=== PATIENT | female | born 1940 | race Caucasian/White ===

== ENCOUNTER 2023-12-21 13:46 | Outpatient (AMB) | payer MEDICARE, SELFPAY ==
[2023-12-21 14:09] VITALS: BP 160/96; PULSE 65; RESP 18; TEMP 35.7; O2SAT 96; BMI 35.5
--- NOTE | 2023-12-21 14:09 | ORTHONT_ITS ---
Vital signs 12/21/23 14:09 Height 1.7 m Height Method Stated Weight 102.625 kg Weight Measurement Method Standing Scale BMI 35.5 BP 160/96 H Blood Pressure Source Automatic Cuff Blood Pressure Location Right Upper Arm Position Sitting Respiration 18 Pulse 65 Pulse Source Monitor Temp 96.2 F L Temp Source Temporal Artery Scan Pulse Oximetry (%) 96 Oxygen Delivery Method Room Air Med/Allergies Allergies & Medications Allergies Sulfa (Sulfonamide Antibiotics) Allergy (Intermediate, Verified 12/21/23 14:11) ITCHING meperidine Allergy (Unknown, Verified 12/21/23 14:11) Rash Medication Reconciliation benazepril 10 mg tablet 10 mg PO DAILY 01/20/20 [History Confirmed 12/21/23] ascorbic acid (vitamin C) 500 mg chewable tablet (Vitamin C) 500 mg PO QDAY 05/01/20 [History Confirmed 12/21/23] calcium 333 mg (carbonate)-magnesium 133 mg-zinc 5 mg (sulfate) tablet 1 tab PO QDAY 05/01/20 [History Confirmed 12/21/23] cholecalciferol (vitamin D3) 10 mcg (400 unit) capsule (Vitamin D3) 10 mcg PO QDAY 05/01/20 [History Confirmed 12/21/23] omega 5-ads-ogr-fish oil 900 mg-1,400 mg capsule,delayed release (Fish Oil) 1 cap PO QDAY 05/01/20 [History Confirmed 12/21/23] vitamin B complex 1 cap PO QDAY 05/01/20 [History Confirmed 12/21/23] metronidazole 500 mg tablet 500 mg PO Q8H #21 tabs 12/27/22 [Rx Confirmed 12/21/23] carvedilol 3.125 mg tablet 3.125 mg PO BID 09/24/23 [History Confirmed 12/21/23] turmeric root extract 500 mg capsule 500 mg PO BID 09/24/23 [History Confirmed 12/21/23] ubidecarenone-omega 3-vit E 25 mg-150 (90-60) mg-200 unit capsule (Co X-[id number] E-Fish Oil) 1 cap PO QDAY 09/24/23 [History Confirmed 12/21/23] wheat dextrin 5 gram/7.4 gram oral powder (Benefiber Healthy Shape) g PO 09/24/23 [History Confirmed 12/21/23] Subjective Visit Visit for: follow up visit and other (specify) Immunization / Flu Flu Vaccine in the Last 12 Months: No Flu Vaccine Exclusion Criteria: No Exclusion Criteria History of Present Illness Chief complaint: PRE-OPT Date of injury / onset of symptoms: 12/01/23 Pleasant 83-year-old female with right hip pain and right hip arthritis. The pain is starting to affect her quality of life and happiness. She also has significant spinal stenosis and history of spine surgeries. She does have radicular pain that goes down her leg. She Has not had any hip injections. She also has significant right knee pain. She tried injections in the past. She is also tried anti-inflammatories. The pain is affecting her quality life and happiness. She only had mild relief with the hip injection. she also has had a history of back surgery. Personal History Occupation: RETIRED Hobbies: WALKING Pain Pain level (0-10): 8 Pain duration: ALL DAY Pain location: inside (medial), outside (lateral), anterior and posterior Pain quality: sharp, dull and aching Pain timing: increases with activity and stairs Associated signs & symptoms: numbness, weakness and stiffness Ambulatory data Ambulatory device: cane Treatments Improvement with previous injections: No Improvement with PT: No Improvement with NSAIDS: n/a Review of Systems Review of Systems: All systems negative unless otherwise noted in HPI. Exam Exam Patient is in no acute distress and is cooperative with the examination today. Breathing is nonlabored. In no respiratory distress. Patient has no paraspinal tenderness. Spinal deformity [cannot] be appreciated. The gait of the patient is [nonantalgic] Bilateral extremities were evaluated and demonstrates sensation intact to light touch. Palpable pedal pulses are present. No significant edema is present. Bilateral knees were examined and the patient has full strength and range of motion.. The left hip was examined. Patient was able to flex to 90 degrees, adduct to 30 degrees, abduct to 40 degrees, internally rotate to 20 degrees, and externally rotate to 20 degrees. Patient has a negative logroll. Stinchfield is negative. The patient is nontender diffusely to touch. The right hip was examined. Patient was able to flex to [90] degrees, adduct to [30] degrees, abduct to [40] degrees, internally rotate to 0 degrees, and externally rotate to [20] degrees. Patient has a positive logroll Right knee demonstrates painful range of motion. Range of motion is 0 to 110 degrees. Knee feels stable to varus stress as well as AP translation. There is valgus alignment X-rays demonstrate significant right hip arthritis. There is complete obliteration of the joint space X-rays of the right knee demonstrate complete obliteration of the lateral joint space. There is impressive valgus alignment. She also has a left total knee replacement good alignment position. There is a similar knee Assessment and Plan Problem List (1) Unilateral primary osteoarthritis, right hip: Status: Acute (2) Arthritis of right knee: Status: Acute Plan: Patient is a pleasant 83-year-old female with right hip and right knee arthritis. She has a history of 2 back surgeries in the past. Regarding her hip, I am not sure how much of the pain is attributed to her back. I thus recommended a hip injection for both diagnostic and therapeutic purposes. She also has significant right knee pain that is affecting her quality life and happiness. She tried injections in the past and there is quite impressive valgus alignment. She had a total knee replacement on the other side previously and wants a total knee replacement on the right side. I think this is reasonable given her failure of conservative management. In addition, the pain is affecting her quality of life for the right knee and I thus think that a total knee replacement on the right is a reasonable option. The nature and purpose of the total knee replacement, alternative method(s) of treatment, the material risks involved, and the possibility of complications were fully explained to the patient. The patient does NOT have any of the following contraindications to TKA: - Active infection of the knee joint, OR - Active systemic bacteremia, OR - Active skin infection or open wound at surgical site, OR - Neuropathic arthritis, OR - Severe, rapidly progressive neurological disease, OR - Severe medical condition that makes risks of surgery outweigh the potential benefit The patient was told the most common risks and complications associated with a total knee replacement include, but are not limited to: blood clots in the leg, fatal pulmonary embolism, dislocation of the prosthesis, intraoperative and postoperative fractures of the femur or tibia, infection, failure of the prosthesis or grafting materials, complications from anesthesia, reactions to bl ood transfusions, postoperative leg length inequality, instability of the knee replacement, nerve damage or injury, vascular injury, delayed wound healing, infection, other injury or even . In addition, there are risks associated with anesthesia given during this operation. Also, the patient was told that after undergoing a total knee replacement there may still be persistent pain or disability. The patient was informed that the success of this operation in part depends upon the mechanical devices which are going to be implanted and that these devices can fail or malfunction, and may need to be repaired or replaced and there are no guarantees as to the longevity of this device or its parts and that it or its parts could fail prematurely. The patient was also notified that during the course of surgery, there may be a need to use bone graft from donors, and that any bone graft used will be carefully screened for communicable diseases, including AIDS, hepatitis, Stewart-Creutzfeldt, or other diseases, but despite the screening procedures, there is a small chance that they could contract one of these diseases. Finally, the patient was asked to follow completely and fully with all advice and recommended treatments, and that recovery and ultimate outcome are affected by their compliance with recommended treatment. We discussed the risks, benefits and treatment alternatives, and the patient is interested in proceeding with surgery. We will try to set this up as expeditiously as possible. Advanced Care Planning Discussion Advance care planning discussed with:: patient Office Procedures GNS Level of Care Nursing/Assessment Patient Status: Established Patient Nursing Assessment/Reassesment: Medication Reconciliation, Update PMH in EMR and Vital Signs Coordination of Care: Complex Care and Chronic Disease 1-5, Education Complex Pt/Fam, Consent,records obtained, informed consent, 1 Ins Authorization, Results/Orders obtained and Staff clarify orders Established Patient Charge Established Patient Point Assignment: 110 Established Patient Point Charge: EP Level 3 (80-115) Past Medical History Past Medical History Have you ever been diagnosed with any of the following: Neurological Problems Seizures: No Cardiology Problems Congestive Heart Failure: No Hypertension: Yes Respiratory Problems Chronic Obstructive Pulmonary Disease (COPD): No Asthma: No Smoking: No Smoking Cessation Counseling: No Smoking Exposure: No Tobacco Use: No Clubbing: No Stomache/Intestinal Problems Diverticulosis: Yes Genital/Urinary Problems Renal Disease: No Musculoskeletal Problems Arthritis: Yes Endocrine Problems Diabetes Mellitus Type 1: No Diabetes Mellitus Type 2: No Blood Problems Sickle Cell Disease: No Other Problems Blood Transfusions: No Anesthesia Reactions: No
== END 2023-12-21 14:51 | disposition home or self-care (01) ==
LOC: HODSRG 13:46
PROVIDERS: PCP Internal Medicine; Referring Provider Internal Medicine; Supervising Provider Orthopaedic Surgery Adult Reconstructive Orthopaedic Surgery; Visit Provider Orthopaedic Surgery Adult Reconstructive Orthopaedic Surgery
DX: M16.11 Unilateral primary osteoarthritis, right hip (principal); M17.11 Unilateral primary osteoarthritis, right knee; I10 Essential (primary) hypertension
CPT/HCPCS: 99213; G0463

== ENCOUNTER 2024-01-04 07:52 | Outpatient (AMB) | payer MEDICARE, SELFPAY ==
[2024-01-04 08:05] VITALS: BP 133/82; PULSE 86; RESP 19; TEMP 36.6; O2SAT 96; BMI 36.6
--- NOTE | 2024-01-04 08:05 | PD.ORTHCLVIS ---
Vital signs 01/04/24 08:05 Height 1.7 m Height Method Stated Weight 105.687 kg Weight Measurement Method Standing Scale BMI 36.6 BP 133/82 H Blood Pressure Source Automatic Cuff Blood Pressure Location Right Upper Arm Position Sitting Respiration 19 Pulse 86 Pulse Source Monitor Temp 97.8 F Temp Source Temporal Artery Scan Pulse Oximetry (%) 96 Oxygen Delivery Method Room Air Med/Allergies Allergies & Medications Allergies [id number] Reductase Inhibitor Allergy (Intermediate, Verified 01/04/24 08:06) Muscle Pain Sulfa (Sulfonamide Antibiotics) Allergy (Intermediate, Verified 01/04/24 08:06) ITCHING meperidine Allergy (Unknown, Verified 01/04/24 08:06) Rash Medication Reconciliation cholecalciferol (vitamin D3) 10 mcg (400 unit) capsule (Vitamin D3) 10 mcg PO QDAY 05/01/20 [History Confirmed 01/04/24] carvedilol 3.125 mg tablet 3.125 mg PO BID 09/24/23 [History Confirmed 01/04/24] magnesium oxide 400 mg PO QDAY 12/27/23 [History Confirmed 01/04/24] vitamin D3 1,250 mcg (50,000 unit)-vitamin K2 200 mcg capsule 1 cap PO BID 12/27/23 [History Confirmed 01/04/24] zinc 50 mg tablet 50 mg PO QDAY 12/27/23 [History Confirmed 01/04/24] acetaminophen 500 mg tablet (Acetaminophen Extra Strength) 1,000 mg (2 x 500 mg) PO Q6H PRN pain #90 tabs 12/29/23 [Rx Confirmed 01/04/24] aspirin 81 mg tablet,delayed release 81 mg PO BID #60 tabs 12/29/23 [Rx Confirmed 01/04/24] doxycycline hyclate 100 mg tablet 100 mg PO BID #14 tabs 12/29/23 [Rx Confirmed 01/04/24] gabapentin 300 mg capsule 300 mg PO .qhs #30 caps 12/29/23 [Rx Confirmed 01/04/24] sennosides 8.6 mg-docusate sodium 50 mg tablet (Senna-S) 1 tab-cap PO QDAY #30 tabs 12/29/23 [Rx Confirmed 01/04/24] cyclobenzaprine 5 mg tablet 5 mg PO TID PRN muscle spasm #30 tabs 12/31/23 [Rx Confirmed 01/04/24] oxycodone 5 mg tablet 5 mg PO Q6H PRN pain #28 tabs 01/04/24 [Rx] Subjective Visit Visit for: follow up visit and knee Immunization / Flu Flu Vaccine in the Last 12 Months: No Flu Vaccine Exclusion Criteria: No Exclusion Criteria History of Present Illness Chief complaint: F/U ON KNEE SX Date of 1st surgery (if applicable): 12/29/2023 Patient is 1 week status post right total knee replacement. The patient had a Prevena on it and it was removed. The patient is doing reasonably well for being 5 days postop Pain Pain level (0-10): 10 Pain duration: ALL DAY Pain location: inside (medial), outside (lateral) and anterior Pain quality: sharp, dull and aching Pain timing: night, increases with activity and stairs Ambulatory data Ambulatory device: walker Treatments Improvement with previous injections: No Improvement with PT: No Improvement with NSAIDS: no Review of Systems Review of Systems: All systems negative unless otherwise noted in HPI. Exam Exam Patient is in no acute distress and is cooperative with the examination today. Patient has a normal mood and affect. Breathing is nonlabored. In no respiratory distress. Bilateral extremities were evaluated and demonstrates sensation intact to light touch. Palpable pedal pulses are present. No significant edema is present. Right knee incision is clean dry intact. Assessment and Plan Problem List (1) Unilateral primary osteoarthritis, right hip: Status: Acute (2) Arthritis of right knee: Status: Acute Plan: Patient is a pleasant 83-year-old female with right hip and right knee arthritis. The patient had a lot of pain status post total knee replacement. It is starting to get controlled now. She was quite upset with me because I only gave her 5 mg of oxycodone and she wanted more. I discussed with her that the pain is definitely present 2 to 5 days after surgery. It is starting to become under control now. We will see her back in approximately 10 days or 2 weeks for a wound check Advanced Care Planning Discussion Advance care planning discussed with:: patient Office Procedures GNS Level of Care Nursing/Assessment Patient Status: Established Patient Nursing Assessment/Reassesment: Medication Reconciliation, Update PMH in EMR and Vital Signs Coordination of Care: Complex Care and Chronic Disease 1-5, Education Complex Pt/Fam, Consent,records obtained, informed consent, Results/Orders obtained and Staff clarify orders Miscellaneous Interventions: Dressing placement or removal Established Patient Charge Established Patient Point Assignment: 115 Established Patient Point Charge: Level 3 (80-115) Past Medical History Past Medical History Have you ever been diagnosed with any of the following: Neurological Problems Seizures: No Cardiology Problems Cardiac Arrhythmia: No Atrial Fibrillation: No Angina: No Coronary Artery Disease: Yes Atherosclerotic Heart Disease: No Hypercholesterolemia: Yes Aneurysm: No Congestive Heart Failure: No Congenital Heart Disease: No Cardiomyopathy: No Hypertension: Yes Varicose Veins: Yes Respiratory Problems Chronic Obstructive Pulmonary Disease (COPD): No Asthma: No Smoking: No Smoking Cessation Counseling: No Smoking Exposure: No Tobacco Use: No Clubbing: No Stomache/Intestinal Problems Hepatitis: No Diverticulosis: Yes Genital/Urinary Problems Renal Disease: Yes Reproductive Problems Pelvic Inflammatory Disease: No Previous Pregnancies: Yes Musculoskeletal Problems Arthritis: Yes Fractures: Yes (wrist as a child) Head,Eye,Nose,Throat Problems Cataracts: Yes Endocrine Problems Diabetes Mellitus Type 1: No Diabetes Mellitus Type 2: No Blood Problems Sickle Cell Disease: No Clotting Problems: No Other Problems Hospitalization: Yes (surgery) Down Syndrome: No Developmental Delay: No Shingles: No Blood Transfusions: Yes Blood Transfusion Reaction: No Anesthesia Reactions: No Organ Transplant: No Chemotherapy: No Radiation Therapy: No MRSA: No VRSA: No Vancomycin-Resistant Enterococci: No Chicken Pox: Yes Measles: Yes Mumps: Yes Clostridium Difficile: No Cancer: Yes Surgical History Coronary Artery Bypass Graft: Yes (Apr 2023) Hysterectomy: Yes Thyroidectomy: No
== END 2024-01-04 08:28 | disposition home or self-care (01) ==
LOC: HODSRG 07:52
PROVIDERS: PCP Family Medicine; Referring Provider Family Medicine; Supervising Provider Orthopaedic Surgery Adult Reconstructive Orthopaedic Surgery; Visit Provider Orthopaedic Surgery Adult Reconstructive Orthopaedic Surgery
DX: Z47.1 Aftercare following joint replacement surgery (principal); Z96.651 Presence of right artificial knee joint; M16.11 Unilateral primary osteoarthritis, right hip; M17.11 Unilateral primary osteoarthritis, right knee; I10 Essential (primary) hypertension; E78.00 Pure hypercholesterolemia, unspecified; I25.10 Atherosclerotic heart disease of native coronary artery without angina pectoris
CPT/HCPCS: 99213; G0463

== ENCOUNTER 2024-01-11 09:38 | Outpatient (AMB) | payer MEDICARE, SELFPAY ==
--- NOTE | 2024-01-11 09:37 | PD.ORTHTELE ---
Med/Allergies Allergies & Medications Allergies [id number]-VsB Reductase Inhibitor Allergy (Intermediate, Verified 01/11/24 09:37) Muscle Pain Sulfa (Sulfonamide Antibiotics) Allergy (Intermediate, Verified 01/11/24 09:37) ITCHING meperidine Allergy (Unknown, Verified 01/11/24 09:37) Rash Medication Reconciliation cholecalciferol (vitamin D3) 10 mcg (400 unit) capsule (Vitamin D3) 10 mcg PO QDAY 05/01/20 [History Confirmed 01/11/24] carvedilol 3.125 mg tablet 3.125 mg PO BID 09/24/23 [History Confirmed 01/11/24] magnesium oxide 400 mg PO QDAY 12/27/23 [History Confirmed 01/11/24] vitamin D3 1,250 mcg (50,000 unit)-vitamin K2 200 mcg capsule 1 cap PO BID 12/27/23 [History Confirmed 01/11/24] zinc 50 mg tablet 50 mg PO QDAY 12/27/23 [History Confirmed 01/11/24] acetaminophen 500 mg tablet (Acetaminophen Extra Strength) 1,000 mg (2 x 500 mg) PO Q6H PRN pain #90 tabs 12/29/23 [Rx Confirmed 01/11/24] aspirin 81 mg tablet,delayed release 81 mg PO BID #60 tabs 12/29/23 [Rx Confirmed 01/11/24] doxycycline hyclate 100 mg tablet 100 mg PO BID #14 tabs 12/29/23 [Rx Confirmed 01/11/24] gabapentin 300 mg capsule 300 mg PO .qhs #30 caps 12/29/23 [Rx Confirmed 01/11/24] sennosides 8.6 mg-docusate sodium 50 mg tablet (Senna-S) 1 tab-cap PO QDAY #30 tabs 12/29/23 [Rx Confirmed 01/11/24] cyclobenzaprine 5 mg tablet 5 mg PO TID PRN muscle spasm #30 tabs 12/31/23 [Rx Confirmed 01/11/24] oxycodone 10 mg tablet 10 mg PO Q6H PRN pain #28 tabs 01/11/24 [Rx Confirmed 01/11/24] Subjective Visit Visit for: follow up visit and knee Immunization / Flu Flu Vaccine in the Last 12 Months: No Flu Vaccine Exclusion Criteria: Refused by Patient History of Present Illness Chief complaint: KNEE PAINA/REQ REFILLS Pain Pain level (0-10): 9 Pain duration: ALL DAY Pain location: inside (medial) Pain quality: aching Pain timing: night Associated signs & symptoms: none Ambulatory data Ambulatory device: none Treatments Improvement with previous injections: No Improvement with PT: No Improvement with NSAIDS: no Review of Systems Review of Systems: All systems negative unless otherwise noted in HPI. Assessment and Plan Advanced Care Planning Discussion Advance care planning discussed with:: patient Office Procedures GNS Level of Care Nursing/Assessment Patient Status: Established Patient Nursing Assessment/Reassesment: Medication Reconciliation, Update PMH in EMR and Vital Signs Coordination of Care: Complex Care and Chronic Disease 1-5, Education Complex Pt/Fam, Consent,records obtained, informed consent, 1 Ins Authorization and Staff clarify orders Established Patient Charge Established Patient Point Assignment: 105 Telehealth Telemed Phone/Video with patient at home & ,PA,[employer]TLER [employer]: Yes
--- NOTE | 2024-03-23 13:13 | ORTHONT_ITS ---
Vital Signs 01/21/24 09:38 Height 1.7 m Height Method Stated Weight 102.739 kg Weight Measurement Method Standing Scale BMI 35.5 Temp 96.1 F L Temp Source Temporal Artery Scan Pulse 76 Pulse Source Monitor Respiration 18 BP 124/72 Blood Pressure Source Automatic Cuff Blood Pressure Location Right Upper Arm Position Sitting Pulse Oximetry (%) 96 Oxygen Delivery Method Room Air Perico Nguyen MD Office Procedure Documentation entered by Valerie Bird 01/21/24 09:30: GNS Level of Care Nursing/Assessment Patient Status: Established Patient Nursing Assessment/Reassesment: Medication Reconciliation, Update PMH in EMR and Vital Signs Coordination of Care: Complex Care and Chronic Disease 1-5, Education Complex Pt/Fam, Consent,records obtained, informed consent, Results/Orders obtained and Staff clarify orders Established Patient Charge Established Patient Point Assignment: 95 Established Patient Point Charge: EP Level 3 (80-115) Med/Allergies Allergies & Medications Allergies Odvcwxx-NEE-VfZ Reductase Inhibitor Allergy (Intermediate, Verified 01/11/24 09:37) Muscle Pain Sulfa (Sulfonamide Antibiotics) Allergy (Intermediate, Verified 01/11/24 09:37) ITCHING meperidine Allergy (Unknown, Verified 01/11/24 09:37) Rash Subjective Immunization / Flu Flu Vaccine in the Last 12 Months: No Flu Vaccine Exclusion Criteria: Already Received History of Present Illness Chief complaint: Pain management This is a phone encounter. Hope called her office ask for refill. She states that she wants 10 mg. She states that during her last surgery she had OxyContin. I discussed with her that this is very atypical. I discussed with her that what she is seeking is a lot of narcotic medications and more than this typically was prescribed after her knee replacement surgery. She reports that the 5 mg of oxycodone is not enough and wants 10 mg. After a very extensive conversation lasting more than 15 minutes. I discussed that we can try oxycodone 10 mg but this would be the last prescription. I would only give her 1 weeks worth which is 28 pills. I discussed that this is a very high dose especially at her age and she should cut the pills in half if possible. I discussed with her that I will also talk to her primary care provider regarding her pain control. The patient states that she did warn us multiple times the pain is always an issue after surgery. We will do her best to get past this point in time. She has called her office staff more than 4-5 times today already. Review of Systems Review of Systems: All systems negative unless otherwise noted in HPI. Assessment and Plan Advanced Care Planning Discussion Advance care planning discussed with:: patient Past Medical History Past Medical History Have you ever been diagnosed with any of the following: Neurological Problems Seizures: No Cardiology Problems Cardiac Arrhythmia: No Atrial Fibrillation: No Angina: No Coronary Artery Disease: Yes Atherosclerotic Heart Disease: No Hypercholesterolemia: Yes Aneurysm: No Congestive Heart Failure: No Congenital Heart Disease: No Cardiomyopathy: No Hypertension: Yes Varicose Veins: Yes Respiratory Problems Chronic Obstructive Pulmonary Disease (COPD): No Asthma: No Smoking: No Smoking Cessation Counseling: No Smoking Exposure: No Tobacco Use: No Clubbing: No Stomache/Intestinal Problems Hepatitis: No Diverticulosis: Yes Genital/Urinary Problems Renal Disease: Yes Reproductive Problems Pelvic Inflammatory Disease: No Previous Pregnancies: Yes Musculoskeletal Problems Arthritis: Yes Fractures: Yes (wrist as a child) Head,Eye,Nose,Throat Problems Cataracts: Yes Endocrine Problems Diabetes Mellitus Type 1: No Diabetes Mellitus Type 2: No Blood Problems Sickle Cell Disease: No Clotting Problems: No Other Problems Hospitalization: Yes (surgery) Down Syndrome: No Developmental Delay: No Shingles: No Blood Transfusions: Yes Blood Transfusion Reaction: No Anesthesia Reactions: No Organ Transplant: No Chemotherapy: No Radiation Therapy: No MRSA: No VRSA: No Vancomycin-Resistant Enterococci: No Chicken Pox: Yes Measles: Yes Mumps: Yes Clostridium Difficile: No Cancer: Yes Surgical History Coronary Artery Bypass Graft: Yes (Apr 2023) Hysterectomy: Yes Thyroidectomy: No MTDD
== END 2024-01-11 09:59 | disposition home or self-care (01) ==
PROVIDERS: PCP Family Medicine; Referring Provider Family Medicine; Supervising Provider Orthopaedic Surgery Adult Reconstructive Orthopaedic Surgery; Visit Provider Orthopaedic Surgery Adult Reconstructive Orthopaedic Surgery
DX: R52 Pain, unspecified (principal); Z96.659 Presence of unspecified artificial knee joint; I10 Essential (primary) hypertension; E78.00 Pure hypercholesterolemia, unspecified
CPT/HCPCS: 99212; G0463

== ENCOUNTER 2024-01-21 09:07 | Outpatient (AMB) | payer MEDICARE, SELFPAY ==
--- NOTE | 2024-01-11 09:38 | PD.ORTHCLVIS ---
Med/Allergies Allergies & Medications Allergies Oyfeucp-[id number]-[id number] Reductase Inhibitor Allergy (Intermediate, Verified 01/11/24 09:37) Muscle Pain Sulfa (Sulfonamide Antibiotics) Allergy (Intermediate, Verified 01/11/24 09:37) ITCHING meperidine Allergy (Unknown, Verified 01/11/24 09:37) Rash Subjective Immunization / Flu Flu Vaccine in the Last 12 Months: No Flu Vaccine Exclusion Criteria: Already Received History of Present Illness Chief complaint: Pain management This is a phone encounter. Hope called her office ask for refill. She states that she wants 10 mg. She states that during her last surgery she had OxyContin. I discussed with her that this is very atypical. I discussed with her that what she is seeking is a lot of narcotic medications and more than this typically was prescribed after her knee replacement surgery. She reports that the 5 mg of oxycodone is not enough and wants 10 mg. After a very extensive conversation lasting more than 15 minutes. I discussed that we can try oxycodone 10 mg but this would be the last prescription. I would only give her 1 weeks worth which is 28 pills. I discussed that this is a very high dose especially at her age and she should cut the pills in half if possible. I discussed with her that I will also talk to her primary care provider regarding her pain control. The patient states that she did warn us multiple times the pain is always an issue after surgery. We will do her best to get past this point in time. She has called her office staff more than 4-5 times today already. Review of Systems Review of Systems: All systems negative unless otherwise noted in HPI. Assessment and Plan Advanced Care Planning Discussion Advance care planning discussed with:: patient Past Medical History Past Medical History Have you ever been diagnosed with any of the following: Neurological Problems Seizures: No Cardiology Problems Cardiac Arrhythmia: No Atrial Fibrillation: No Angina: No Coronary Artery Disease: Yes Atherosclerotic Heart Disease: No Hypercholesterolemia: Yes Aneurysm: No Congestive Heart Failure: No Congenital Heart Disease: No Cardiomyopathy: No Hypertension: Yes Varicose Veins: Yes Respiratory Problems Chronic Obstructive Pulmonary Disease (COPD): No Asthma: No Smoking: No Smoking Cessation Counseling: No Smoking Exposure: No Tobacco Use: No Clubbing: No Stomache/Intestinal Problems Hepatitis: No Diverticulosis: Yes Genital/Urinary Problems Renal Disease: Yes Reproductive Problems Pelvic Inflammatory Disease: No Previous Pregnancies: Yes Musculoskeletal Problems Arthritis: Yes Fractures: Yes (wrist as a child) Head,Eye,Nose,Throat Problems Cataracts: Yes Endocrine Problems Diabetes Mellitus Type 1: No Diabetes Mellitus Type 2: No Blood Problems Sickle Cell Disease: No Clotting Problems: No Other Problems Hospitalization: Yes (surgery) Down Syndrome: No Developmental Delay: No Shingles: No Blood Transfusions: Yes Blood Transfusion Reaction: No Anesthesia Reactions: No Organ Transplant: No Chemotherapy: No Radiation Therapy: No MRSA: No VRSA: No Vancomycin-Resistant Enterococci: No Chicken Pox: Yes Measles: Yes Mumps: Yes Clostridium Difficile: No Cancer: Yes Surgical History Coronary Artery Bypass Graft: Yes (Apr 2023) Hysterectomy: Yes Thyroidectomy: No
[2024-01-21 09:38] VITALS: BP 124/72; PULSE 76; RESP 18; TEMP 35.6; O2SAT 96; BMI 35.5
--- NOTE | 2024-01-21 09:39 | PD.ORTHCLVIS ---
Vital signs 01/21/24 09:38 01/21/24 09:40 Height 1.7 m Height Method Stated Weight 102.739 kg Weight Measurement Method Standing Scale BMI 35.5 BP 124/72 124/72 Blood Pressure Source Automatic Cuff Blood Pressure Location Right Upper Arm Position Sitting Respiration 18 18 Pulse 76 76 Pulse Source Monitor Temp 96.1 F L 96.1 F L Temp Source Temporal Artery Scan Pulse Oximetry (%) 96 96 Oxygen Delivery Method Room Air Med/Allergies Allergies & Medications Allergies Vrvkyhv-YKB-YoI Reductase Inhibitor Allergy (Intermediate, Verified 01/21/24 09:39) Muscle Pain Sulfa (Sulfonamide Antibiotics) Allergy (Intermediate, Verified 01/21/24 09:39) ITCHING meperidine Allergy (Unknown, Verified 01/21/24 09:39) Rash Medication Reconciliation cholecalciferol (vitamin D3) 10 mcg (400 unit) capsule (Vitamin D3) 10 mcg PO QDAY 05/01/20 [History Confirmed 01/21/24] carvedilol 3.125 mg tablet 3.125 mg PO BID 09/24/23 [History Confirmed 01/21/24] magnesium oxide 400 mg PO QDAY 12/27/23 [History Confirmed 01/21/24] vitamin D3 1,250 mcg (50,000 unit)-vitamin K2 200 mcg capsule 1 cap PO BID 12/27/23 [History Confirmed 01/21/24] zinc 50 mg tablet 50 mg PO QDAY 12/27/23 [History Confirmed 01/21/24] acetaminophen 500 mg tablet (Acetaminophen Extra Strength) 1,000 mg (2 x 500 mg) PO Q6H PRN pain #90 tabs 12/29/23 [Rx Confirmed 01/21/24] aspirin 81 mg tablet,delayed release 81 mg PO BID #60 tabs 12/29/23 [Rx Confirmed 01/21/24] doxycycline hyclate 100 mg tablet 100 mg PO BID #14 tabs 12/29/23 [Rx Confirmed 01/21/24] gabapentin 300 mg capsule 300 mg PO .qhs #30 caps 12/29/23 [Rx Confirmed 01/21/24] sennosides 8.6 mg-docusate sodium 50 mg tablet (Senna-S) 1 tab-cap PO QDAY #30 tabs 12/29/23 [Rx Confirmed 01/21/24] cyclobenzaprine 5 mg tablet 5 mg PO TID PRN muscle spasm #30 tabs 12/31/23 [Rx Confirmed 01/21/24] oxycodone 10 mg tablet 10 mg PO Q6H PRN pain #28 tabs 01/11/24 [Rx Confirmed 01/21/24] pregabalin 75 mg capsule 75 mg PO BID #60 caps 01/21/24 [Rx Confirmed 01/21/24] Subjective Visit Visit for: follow up visit and knee Immunization / Flu Flu Vaccine in the Last 12 Months: No Flu Vaccine Exclusion Criteria: Already Received History of Present Illness Chief complaint: 3 weeks postop Patient is 3 weeks postop status post right total knee replacement. The pain is now more controlled than before. She should work with outpatient physical therapy Pain Pain level (0-10): 5 Pain duration: ON AND OFF Pain location: inside (medial) Pain quality: aching Pain timing: night Ambulatory data Ambulatory device: walker Review of Systems Review of Systems: All systems negative unless otherwise noted in HPI. Exam Exam Patient is in no acute distress and is cooperative with the examination today. Patient has a normal mood and affect. Breathing is nonlabored. In no respiratory distress. Bilateral extremities were evaluated and demonstrates sensation intact to light touch. Palpable pedal pulses are present. No significant edema is present. Right knee incision is clean dry intact. Assessment and Plan Problem List (1) Arthritis of right knee: Status: Acute Plan: Vani is a pleasant 83-year-old female with right knee pain and right knee arthritis. The patient is doing better and has been more well-controlled pain. Will see her in approximately 3 weeks with new x-rays Advanced Care Planning Discussion Advance care planning discussed with:: patient Office Procedures GNS Level of Care Nursing/Assessment Patient Status: Established Patient Nursing Assessment/Reassesment: Medication Reconciliation, Update PMH in EMR and Vital Signs Coordination of Care: Complex Care and Chronic Disease 1-5, Education Complex Pt/Fam, Consent,records obtained, informed consent, Results/Orders obtained and Staff clarify orders Established Patient Charge Established Patient Point Assignment: 95 Established Patient Point Charge: EP Level 3 (80-115) Past Medical History Past Medical History Have you ever been diagnosed with any of the following: Neurological Problems Seizures: No Cardiology Problems Cardiac Arrhythmia: No Atrial Fibrillation: No Angina: No Coronary Artery Disease: Yes Atherosclerotic Heart Disease: No Hypercholesterolemia: Yes Aneurysm: No Congestive Heart Failure: No Congenital Heart Disease: No Cardiomyopathy: No Hypertension: Yes Varicose Veins: Yes Respiratory Problems Chronic Obstructive Pulmonary Disease (COPD): No Asthma: No Smoking: No Smoking Cessation Counseling: No Smoking Exposure: No Tobacco Use: No Clubbing: No Stomache/Intestinal Problems Hepatitis: No Diverticulosis: Yes Genital/Urinary Problems Renal Disease: Yes Reproductive Problems Pelvic Inflammatory Disease: No Previous Pregnancies: Yes Musculoskeletal Problems Arthritis: Yes Fractures: Yes (wrist as a child) Head,Eye,Nose,Throat Problems Cataracts: Yes Endocrine Problems Diabetes Mellitus Type 1: No Diabetes Mellitus Type 2: No Blood Problems Sickle Cell Disease: No Clotting Problems: No Other Problems Hospitalization: Yes (surgery) Down Syndrome: No Developmental Delay: No Shingles: No Blood Transfusions: Yes Blood Transfusion Reaction: No Anesthesia Reactions: No Organ Transplant: No Chemotherapy: No Radiation Therapy: No MRSA: No VRSA: No Vancomycin-Resistant Enterococci: No Chicken Pox: Yes Measles: Yes Mumps: Yes Clostridium Difficile: No Cancer: Yes Surgical History Coronary Artery Bypass Graft: Yes (Apr 2023) Hysterectomy: Yes Thyroidectomy: No
[2024-01-21 09:40] VITALS: BP 124/72; PULSE 76; RESP 18; TEMP 35.6; O2SAT 96
== END 2024-01-21 09:38 | disposition home or self-care (01) ==
PROVIDERS: PCP Family Medicine; Referring Provider Family Medicine; Supervising Provider Orthopaedic Surgery Adult Reconstructive Orthopaedic Surgery; Visit Provider Orthopaedic Surgery Adult Reconstructive Orthopaedic Surgery
DX: M17.11 Unilateral primary osteoarthritis, right knee (principal); M25.561 Pain in right knee; Z96.651 Presence of right artificial knee joint; I10 Essential (primary) hypertension; E78.00 Pure hypercholesterolemia, unspecified; I25.10 Atherosclerotic heart disease of native coronary artery without angina pectoris; Z95.1 Presence of aortocoronary bypass graft
CPT/HCPCS: 99213; G0463

== ENCOUNTER 2024-01-25 11:06 | Outpatient (AMB) | payer MEDICARE, SELFPAY ==
--- NOTE | 2024-01-25 10:34 | PD.ORTHTELE ---
Med/Allergies Allergies & Medications Allergies Xwvlizv-VNK-UfO Reductase Inhibitor Allergy (Intermediate, Verified 01/25/24 10:34) Muscle Pain Sulfa (Sulfonamide Antibiotics) Allergy (Intermediate, Verified 01/25/24 10:34) ITCHING meperidine Allergy (Unknown, Verified 01/25/24 10:34) Rash Medication Reconciliation cholecalciferol (vitamin D3) 10 mcg (400 unit) capsule (Vitamin D3) 10 mcg PO QDAY 05/01/20 [History Confirmed 01/25/24] carvedilol 3.125 mg tablet 3.125 mg PO BID 09/24/23 [History Confirmed 01/25/24] magnesium oxide 400 mg PO QDAY 12/27/23 [History Confirmed 01/25/24] vitamin D3 1,250 mcg (50,000 unit)-vitamin K2 200 mcg capsule 1 cap PO BID 12/27/23 [History Confirmed 01/25/24] zinc 50 mg tablet 50 mg PO QDAY 12/27/23 [History Confirmed 01/25/24] acetaminophen 500 mg tablet (Acetaminophen Extra Strength) 1,000 mg (2 x 500 mg) PO Q6H PRN pain #90 tabs 12/29/23 [Rx Confirmed 01/25/24] aspirin 81 mg tablet,delayed release 81 mg PO BID #60 tabs 12/29/23 [Rx Confirmed 01/25/24] doxycycline hyclate 100 mg tablet 100 mg PO BID #14 tabs 12/29/23 [Rx Confirmed 01/25/24] gabapentin 300 mg capsule 300 mg PO .qhs #30 caps 12/29/23 [Rx Confirmed 01/25/24] sennosides 8.6 mg-docusate sodium 50 mg tablet (Senna-S) 1 tab-cap PO QDAY #30 tabs 12/29/23 [Rx Confirmed 01/25/24] cyclobenzaprine 5 mg tablet 5 mg PO TID PRN muscle spasm #30 tabs 12/31/23 [Rx Confirmed 01/25/24] oxycodone 10 mg tablet 10 mg PO Q6H PRN pain #28 tabs 01/11/24 [Rx Confirmed 01/25/24] pregabalin 75 mg capsule 75 mg PO BID #60 caps 01/21/24 [Rx Confirmed 01/25/24] Subjective Visit Visit for: follow up visit and other (specify) (RX CONCERNS) Immunization / Flu Flu Vaccine in the Last 12 Months: No Flu Vaccine Exclusion Criteria: No Exclusion Criteria History of Present Illness Chief complaint: RX CONCERNS We discussed her pain management in great detail. She has done well with the Lyrica. She had some concerns about the Lyrica and we discussed this in great detail today Pain Pain level (0-10): 3 Pain duration: ON AND OFF Pain location: inside (medial) Pain quality: aching Ambulatory data Ambulatory device: walker Treatments Improvement with previous injections: No Improvement with PT: No Improvement with NSAIDS: no Review of Systems Review of Systems: All systems negative unless otherwise noted in HPI. Assessment and Plan Problem List (1) Arthritis of right knee: Status: Acute Plan: Vani is a pleasant 83-year-old female with right knee pain and right knee arthritis. The patient is doing better and has been more well-controlled pain. We will see the patient back in approximately 6 weeks for routine follow-up. She is doing well and better Advanced Care Planning Discussion Advance care planning discussed with:: patient Office Procedures GNS Level of Care Nursing/Assessment Patient Status: Established Patient Nursing Assessment/Reassesment: Medication Reconciliation, Update PMH in EMR and Vital Signs Coordination of Care: Complex Care and Chronic Disease 1-5, Education Complex Pt/Fam, Consent,records obtained, informed consent and Staff clarify orders Established Patient Charge Established Patient Point Assignment: 90 Telehealth Telemed Phone/Video with patient at home & ,PA,ZIGZAG STITCHER: Yes
== END 2024-01-25 11:09 | disposition home or self-care (01) ==
LOC: HODSRG 11:06
PROVIDERS: PCP Family Medicine; Referring Provider Family Medicine; Supervising Provider Orthopaedic Surgery Adult Reconstructive Orthopaedic Surgery; Visit Provider Orthopaedic Surgery Adult Reconstructive Orthopaedic Surgery
DX: M17.11 Unilateral primary osteoarthritis, right knee (principal); M25.561 Pain in right knee
CPT/HCPCS: 99212; G0463

== ENCOUNTER → 2024-02-14 | Outpatient (CLI) | payer MEDICARE, SELFPAY ==
--- NOTE | 2024-02-14 12:31 | XR_ITS ---
Examination: Right knee 4 views TECHNIQUE: AP oblique lateral axial right knee 4 views Exam date and time: February 14, 2024 1357 hours INDICATIONS: Status post right knee arthroplasty December 29, 2023 FINDINGS: Significant osteopenia Total right knee arthroplasty. Satisfactory alignment No fracture No patellar dislocation IMPRESSION: Total right knee arthroplasty with satisfactory alignment
== END | disposition home or self-care (01) ==
PROVIDERS: PCP Family Medicine; Referring Provider Orthopaedic Surgery Adult Reconstructive Orthopaedic Surgery; Visit Provider Orthopaedic Surgery Adult Reconstructive Orthopaedic Surgery
DX: M17.11 Unilateral primary osteoarthritis, right knee (principal); Z96.651 Presence of right artificial knee joint
CPT/HCPCS: 73564

== ENCOUNTER 2024-02-15 13:21 | Outpatient (AMB) | payer MEDICARE, SELFPAY ==
[2024-02-15 13:49] VITALS: BP 144/72; PULSE 89; RESP 19; TEMP 36.4; O2SAT 98; BMI 36.9
--- NOTE | 2024-02-15 13:49 | RHCORTHONT_ITS ---
Vital signs 02/15/24 13:49 Height 1.7 m Height Method Stated Weight 106.708 kg Weight Measurement Method Standing Scale BMI 36.9 BP 144/72 H Blood Pressure Source Automatic Cuff Blood Pressure Location Left Upper Arm Position Sitting Respiration 19 Pulse 89 Pulse Source Monitor Temp 97.5 F Temp Source Temporal Artery Scan Pulse Oximetry (%) 98 Oxygen Delivery Method Room Air Med/Allergies Allergies & Medications Allergies Cimvpti-ZPY-ByL Reductase Inhibitor Allergy (Intermediate, Verified 02/15/24 13:51) Muscle Pain Sulfa (Sulfonamide Antibiotics) Allergy (Intermediate, Verified 02/15/24 13:51) ITCHING meperidine Allergy (Unknown, Verified 02/15/24 13:51) Rash Medication Reconciliation cholecalciferol (vitamin D3) 10 mcg (400 unit) capsule (Vitamin D3) 10 mcg PO QDAY 05/01/20 [History Confirmed 02/15/24] carvedilol 3.125 mg tablet 3.125 mg PO BID 09/24/23 [History Confirmed 02/15/24] magnesium oxide 400 mg PO QDAY 12/27/23 [History Confirmed 02/15/24] vitamin D3 1,250 mcg (50,000 unit)-vitamin K2 200 mcg capsule 1 cap PO BID 12/27/23 [History Confirmed 02/15/24] zinc 50 mg tablet 50 mg PO QDAY 12/27/23 [History Confirmed 02/15/24] acetaminophen 500 mg tablet (Acetaminophen Extra Strength) 1,000 mg (2 x 500 mg) PO Q6H PRN pain #90 tabs 12/29/23 [Rx Confirmed 02/15/24] aspirin 81 mg tablet,delayed release 81 mg PO BID #60 tabs 12/29/23 [Rx Confirmed 02/15/24] doxycycline hyclate 100 mg tablet 100 mg PO BID #14 tabs 12/29/23 [Rx Confirmed 02/15/24] gabapentin 300 mg capsule 300 mg PO .qhs #30 caps 12/29/23 [Rx Confirmed 02/15/24] sennosides 8.6 mg-docusate sodium 50 mg tablet (Senna-S) 1 tab-cap PO QDAY #30 tabs 12/29/23 [Rx Confirmed 02/15/24] cyclobenzaprine 5 mg tablet 5 mg PO TID PRN muscle spasm #30 tabs 12/31/23 [Rx Confirmed 02/15/24] oxycodone 10 mg tablet 10 mg PO Q6H PRN pain #28 tabs 01/11/24 [Rx Confirmed 02/15/24] pregabalin 75 mg capsule 75 mg PO BID #60 caps 01/21/24 [Rx Confirmed 02/15/24] Exam Exam Patient is in no acute distress and is cooperative with the examination today. Patient has a normal mood and affect. Breathing is nonlabored. In no respiratory distress. Bilateral extremities were evaluated and demonstrates sensation intact to light touch. Palpable pedal pulses are present. No significant edema is present. Right knee incision is clean dry intact. Assessment and Plan Problem List (1) Arthritis of right knee: Status: Acute Plan: Vani is a pleasant 83-year-old female with right knee pain and right knee arthritis. The patient is doing better and has been more well-controlled pain. We will see the patient back in approximately 6 weeks for routine follow-up. She is doing well and better Advanced Care Planning Discussion Advance care planning discussed with:: patient Office Procedures GNS Level of Care Nursing/Assessment Patient Status: Established Patient Nursing Assessment/Reassesment: Medication Reconciliation, Update PMH in EMR and Vital Signs Coordination of Care: Complex Care and Chronic Disease 1-5, Education Complex Pt/Fam, Consent,records obtained, informed consent, Results/Orders obtained and Staff clarify orders Established Patient Charge Established Patient Point Assignment: 95 Established Patient Point Charge: EP Level 3 (80-115) [place] Intake Visit Data Collection New Patient or Established: Established Patient (seen at [facility] within 3 years) Reason for Visit:: F/U on knee tka [employer] Contact [employer]inter Required: No PCP or OBGYN visit in last 3 months: Yes Hx Now: No Do You Feel Safe at Home: Yes Authorities Contacted: N/A Questionairres Past Medical History Past Medical History Have you ever been diagnosed with any of the following: Neurological Problems Seizures: No Cardiology Problems Cardiac Arrhythmia: No Atrial Fibrillation: No Angina: No Coronary Artery Disease: Yes Atherosclerotic Heart Disease: No Hypercholesterolemia: Yes Aneurysm: No Congestive Heart Failure: No Congenital Heart Disease: No Cardiomyopathy: No Hypertension: Yes Varicose Veins: Yes Respiratory Problems Chronic Obstructive Pulmonary Disease (COPD): No Asthma: No Smoking: No Smoking Cessation Counseling: No Smoking Exposure: No Tobacco Use: No Clubbing: No Stomache/Intestinal Problems Hepatitis: No Diverticulosis: Yes Genital/Urinary Problems Renal Disease: Yes Reproductive Problems Pelvic Inflammatory Disease: No Previous Pregnancies: Yes Musculoskeletal Problems Arthritis: Yes Fractures: Yes (wrist as a child) Head,Eye,Nose,Throat Problems Cataracts: Yes Endocrine Problems Diabetes Mellitus Type 1: No Diabetes Mellitus Type 2: No Blood Problems Sickle Cell Disease: No Clotting Problems: No Other Problems Hospitalization: Yes (surgery) Down Syndrome: No Developmental Delay: No Shingles: No Blood Transfusions: Yes Blood Transfusion Reaction: No Anesthesia Reactions: No Organ Transplant: No Chemotherapy: No Radiation Therapy: No MRSA: No VRSA: No Vancomycin-Resistant Enterococci: No Chicken Pox: Yes Measles: Yes Mumps: Yes Clostridium Difficile: No Cancer: Yes Surgical History Coronary Artery Bypass Graft: Yes (Apr 2023) Hysterectomy: Yes Thyroidectomy: No Subjective Visit Visit for: follow up visit and post op #2 Immunization / Flu Flu Vaccine in the Last 12 Months: Yes Flu Vaccine Exclusion Criteria: No Exclusion Criteria History of Present Illness Chief complaint: F/U knee tka Patient is a 83-year-old female status post total knee replacement. She is doing well. Her original course was quite rough as she had uncontrolled pain in the beginning. She reports that this happens quite frequently. She has significant hip arthritis as well. Pain Pain level (0-10): 2 Pain duration: comes and goes Pain quality: sharp Pain timing: night and increases with activity Ambulatory data Ambulatory device: none Treatments Improvement with previous injections: No Improvement with PT: No Improvement with NSAIDS: n/a Review of Systems Review of Systems: All systems negative unless otherwise noted in HPI.
== END 2024-02-15 14:16 | disposition home or self-care (01) ==
LOC: HODSRG 13:21
PROVIDERS: PCP Family Medicine; Referring Provider Family Medicine; Supervising Provider Orthopaedic Surgery Adult Reconstructive Orthopaedic Surgery; Visit Provider Orthopaedic Surgery Adult Reconstructive Orthopaedic Surgery
DX: M17.11 Unilateral primary osteoarthritis, right knee (principal); M25.561 Pain in right knee; I10 Essential (primary) hypertension; I25.10 Atherosclerotic heart disease of native coronary artery without angina pectoris; E78.00 Pure hypercholesterolemia, unspecified; Z95.1 Presence of aortocoronary bypass graft
CPT/HCPCS: 99213; G0463

== ENCOUNTER → 2024-03-13 | Outpatient (CLI) | payer MEDICARE, SELFPAY ==
[2024-03-13 11:34] LABS: Collection Type, Urine Clean Catch; Squamous Epithelial Cell,Urine 0 /hpf (0-5)
[2024-03-13 11:58] LABS: Basophils % (Auto) 1 % (0-2.5); Eosinophils # (Auto) 0.2 Thou/mm3 (0.0-0.5); Eosinophils % (Auto) 3 % (0-10); Hematocrit 38.5 % (36.0-46.0); Hemoglobin 12.6 g/dL (12.0-16.0); Immature Granulocytes % (Auto) 0 % (0-0); Immature Granulocytes Auto 0.01 Thou/mm3 (0.00-0.00); Lymphocytes # (Auto) 1.4 Thou/mm3 (1.0-4.8); Lymphocytes % (Auto) 23 % (10-50); Mean Corpuscular HGB Conc 32.7 g/dl (31.0-37.0); Mean Corpuscular Hemoglobin 30.4 pg (25.0-35.0); Mean Corpuscular Volume 93 fL (80-100); Monocytes # (Auto) 0.4 Thou/mm3 (0.0-0.8); Monocytes % (Auto) 6 % (0-12); Neutrophils # (Auto) 4.3 Thou/mm3 (1.8-7.7); Neutrophils % (Auto) 68 % (37-80); Nucleated Red Blood Cell % 0 /100 WBC (0); Platelet Count 191 Thou/mm3 (140-440); RDW Standard Deviation 44.2 fL (36.4-46.3); Red Blood Count 4.14 Miln/mm3 (4.00-5.20); White Blood Count 6.3 Thou/mm3 (3.6-11.0)
[2024-03-13 12:09] LABS: Bacteria,Urine Rare; Bilirubin,Urine Negative (Negative); Blood,Urine Negative (Negative); Clarity,Urine Clear (Clear/Hazy); Color,Urine Lt-Yellow (Lt Yel-Yel); Glucose, Urine Negative (Negative); Ketones,Urine Negative (Negative); Leukocyte Esterase,Urine Negative (Negative); Nitrite,Urine Negative (Negative); Protein,Urine Trace (Neg - Trace); RBC,Urine 1 /hpf (0-3); Specific Gravity,Urine 1.016 (1.001-1.035); Urobilinogen,Urine Negative mg/dL (0.0-1.0); WBC,Urine 3 /hpf (0-5)
[2024-03-13 12:14] LABS: Albumin, Serum 4.6 gm/dL (3.4-4.8); Anion Gap 8 (7-16); BUN/Creatinine Ratio 28 Ratio (12-20); Blood Urea Nitrogen 33 mg/dL (9-23); Calcium 10.7 mg/dL (8.3-10.6); Calcium (Corrected) 10.7 mg/dL (8.5-10.1); Carbon Dioxide 29.6 mMol/L (20.0-31.0); Chloride 100 mMol/L (98-107); Creatinine (Component) 1.2 mg/dL (0.6-1.3); Glucose 100 mg/dL (74-106); Osmolality,Calculated 282 (275-295); Phosphorous 3.4 mg/dL (2.4-5.1); Potassium 4.4 mMol/L (3.4-5.1); Sodium 138 mMol/L (136-145); eGFR 45 See Note
[2024-03-13 18:35] LABS: Parathyroid Hormone Intact 53.5 pg/ml (18.5-88.0)
== END | disposition home or self-care (01) ==
LOC: COPL 10:43
PROVIDERS: PCP Family Medicine; Referring Provider Family Medicine; Visit Provider Internal Medicine
DX: I12.9 Hypertensive chronic kidney disease with stage 1 through stage 4 chronic kidney disease, or unspecified chronic kidney disease (principal); N18.30 Chronic kidney disease, stage 3 unspecified
CPT/HCPCS: 36415; 80069; 81001; 83970; 85025

== ENCOUNTER → 2024-03-15 | Outpatient (CLI) | payer MEDICARE, SELFPAY ==
[2024-03-15 15:07] LABS: Parathyroid Hormone Intact 52.9 pg/ml (18.5-88.0)
== END | disposition home or self-care (01) ==
LOC: COPL 13:36
PROVIDERS: PCP Family Medicine; Referring Provider Internal Medicine; Visit Provider Internal Medicine
DX: E83.52 Hypercalcemia (principal)
CPT/HCPCS: 36415; 83970

== ENCOUNTER → 2024-03-30 | Outpatient (CLI) | payer MEDICARE, SELFPAY ==
--- NOTE | 2024-03-30 15:41 | XR_ITS ---
Examination:Right hip AP, lateral, AP pelvis 3 views Technique: Hip AP lateral, AP pelvis, 3 views Exam date and time:March 30, 2024 1615 hours Comparison December 22, 2022 INDICATIONS: Right hip pain 3 years. FINDINGS: Severe narrowing right hip joint with subarticular sclerosis Poorly defined radiolucencies in the right femoral head Moderate narrowing left hip joint Bones of the pelvis intact IMPRESSION: Severe right hip osteoarthritis Suspicious for avascular necrosis right femoral head, consider MRI right hip without contrast follow-up.
== END | disposition home or self-care (01) ==
LOC: CDIM 15:34
PROVIDERS: Referring Provider Family Medicine; Visit Provider Family Medicine
DX: M16.11 Unilateral primary osteoarthritis, right hip (principal)
CPT/HCPCS: 73502

== ENCOUNTER → 2024-04-14 | Outpatient (CLI) | payer MEDICARE, SELFPAY ==
--- NOTE | 2024-04-14 12:30 | XR_ITS ---
Examination: MRI right hip without intravenous contrast. Date and time of exam: April 14, 2024 1310 hours INDICATIONS: Right hip pain stiffness difficulty walking 5 years Technique: Multiple MRI images of the right hip have been obtained T1 weighted coronal sections, TR 500, TE 12 Proton density coronal fat saturated images, TR 3000, TE 71 T2-weighted coronal images, 5850, TE 104 T1-weighted axial images, TR 521, TE 12 T2-weighted axial fat suppressed images, TR 5730, TE 103. Findings: Advanced right hip osteoarthritis Prominent subarticular cyst formation involving femoral head in the acetabulum Asymmetric small to moderate right hip effusion Anterior superior labral tears Moderate to advanced narrowing left hip joint No acute fracture Bones of the pelvis intact No pelvic mass No free fluid in the pelvis IMPRESSION: Advanced right hip osteoarthritis Anterior superior labral tears
== END | disposition home or self-care (01) ==
LOC: SMRI 12:23
PROVIDERS: PCP Family Medicine; Referring Provider Family Medicine; Visit Provider Family Medicine
DX: M16.11 Unilateral primary osteoarthritis, right hip (principal); S73.191A Other sprain of right hip, initial encounter; X58.XXXA Exposure to other specified factors, initial encounter
CPT/HCPCS: 73721

== ENCOUNTER → 2024-04-28 | Outpatient (CLI) | payer MEDICARE, SELFPAY ==
[2024-04-28 13:43] LABS: Basophils % (Auto) 1 % (0-2.5); Eosinophils # (Auto) 0.1 Thou/mm3 (0.0-0.5); Eosinophils % (Auto) 2 % (0-10); Hematocrit 39.5 % (36.0-46.0); Hemoglobin 13.2 g/dL (12.0-16.0); Immature Granulocytes % (Auto) 0 % (0-0); Immature Granulocytes Auto 0.01 Thou/mm3 (0.00-0.00); Lymphocytes # (Auto) 1.3 Thou/mm3 (1.0-4.8); Lymphocytes % (Auto) 20 % (10-50); Mean Corpuscular HGB Conc 33.4 g/dl (31.0-37.0); Mean Corpuscular Hemoglobin 30.1 pg (25.0-35.0); Mean Corpuscular Volume 90 fL (80-100); Monocytes # (Auto) 0.4 Thou/mm3 (0.0-0.8); Monocytes % (Auto) 6 % (0-12); Neutrophils # (Auto) 4.7 Thou/mm3 (1.8-7.7); Neutrophils % (Auto) 72 % (37-80); Nucleated Red Blood Cell % 0 /100 WBC (0); Platelet Count 215 Thou/mm3 (140-440); Prothrombin Time 10.6 Seconds (9.0-12.2); RDW Standard Deviation 44.5 fL (36.4-46.3); Red Blood Count 4.38 Miln/mm3 (4.00-5.20); White Blood Count 6.5 Thou/mm3 (3.6-11.0)
[2024-04-28 13:55] LABS: Alanine Aminotransferase 11 U/L (10-49); Albumin, Serum 4.5 gm/dL (3.4-4.8); Albumin/Globulin Ratio 1.9 (1.2-2.2); Alkaline Phosphatase 140 U/L (46-116); Anion Gap 10 (7-16); Aspartate Amino Transferase 21 U/L (0-34); BUN/Creatinine Ratio 30 Ratio (12-20); Bilirubin,Direct 0.1 mg/dL (0.0-0.3); Bilirubin,Total 0.4 mg/dL (0.3-1.2); Blood Urea Nitrogen 33 mg/dL (9-23); Calcium 10.5 mg/dL (8.3-10.6); Calcium (Corrected) 10.5 mg/dL (8.5-10.1); Carbon Dioxide 27.8 mMol/L (20.0-31.0); Cardiac Risk Estimate 3.2 RATIO (3.7-5.6); Chloride 103 mMol/L (98-107); Cholesterol 266 mg/dL (132-200); Creatinine (Component) 1.1 mg/dL (0.6-1.3); Globulin 2.4 gm/dL (2.3-3.5); Glucose 98 mg/dL (74-106); HDL Cholesterol 82 mg/dL (40-60); LDL Cholesterol,Calculated 161 mg/dL (0-130); Osmolality,Calculated 288 (275-295); Potassium 4.4 mMol/L (3.4-5.1); Sodium 141 mMol/L (136-145); Total Protein 6.9 gm/dL (5.7-8.2); Triglycerides 117 mg/dL (30-150); eGFR 50 See Note
== END | disposition home or self-care (01) ==
PROVIDERS: PCP Family Medicine; Referring Provider Orthopaedic Surgery; Visit Provider Internal Medicine
DX: I25.810 Atherosclerosis of coronary artery bypass graft(s) without angina pectoris (principal); I10 Essential (primary) hypertension
CPT/HCPCS: 36415; 80053; 80061; 82248; 85025; 85610

== ENCOUNTER 2024-05-16 10:20 | Outpatient (AMB) | payer MEDICARE, SELFPAY ==
--- NOTE | 2024-05-16 10:48 | PD.ORTHCLVIS ---
Vital signs 05/16/24 10:49 Height 1.7 m Height Method Stated Weight 102.569 kg Weight Measurement Method Standing Scale BMI 35.4 BP 139/83 H Blood Pressure Source Automatic Cuff Blood Pressure Location Right Upper Arm Position Sitting Respiration 18 Pulse 66 Pulse Source Monitor Temp 97.4 F Temp Source Temporal Artery Scan Pulse Oximetry (%) 97 Oxygen Delivery Method Room Air Med/Allergies Allergies & Medications Allergies [id number] Reductase Inhibitor Allergy (Intermediate, Verified 05/16/24 10:50) Muscle Pain Sulfa (Sulfonamide Antibiotics) Allergy (Intermediate, Verified 05/16/24 10:50) ITCHING meperidine Allergy (Unknown, Verified 05/16/24 10:50) Rash Medication Reconciliation cholecalciferol (vitamin D3) 10 mcg (400 unit) capsule (Vitamin D3) 10 mcg PO QDAY 05/01/20 [History Confirmed 05/16/24] carvedilol 3.125 mg tablet 3.125 mg PO BID 09/24/23 [History Confirmed 05/16/24] magnesium oxide 400 mg PO QDAY 12/27/23 [History Confirmed 05/16/24] vitamin D3 1,250 mcg (50,000 unit)-vitamin K2 200 mcg capsule 1 cap PO BID 12/27/23 [History Confirmed 05/16/24] zinc 50 mg tablet 50 mg PO QDAY 12/27/23 [History Confirmed 05/16/24] acetaminophen 500 mg tablet (Acetaminophen Extra Strength) 1,000 mg (2 x 500 mg) PO Q6H PRN pain #90 tabs 12/29/23 [Rx Confirmed 05/16/24] aspirin 81 mg tablet,delayed release 81 mg PO BID #60 tabs 12/29/23 [Rx Confirmed 05/16/24] doxycycline hyclate 100 mg tablet 100 mg PO BID #14 tabs 12/29/23 [Rx Confirmed 05/16/24] gabapentin 300 mg capsule 300 mg PO .qhs #30 caps 12/29/23 [Rx Confirmed 05/16/24] sennosides 8.6 mg-docusate sodium 50 mg tablet (Senna-S) 1 tab-cap PO QDAY #30 tabs 12/29/23 [Rx Confirmed 05/16/24] cyclobenzaprine 5 mg tablet 5 mg PO TID PRN muscle spasm #30 tabs 12/31/23 [Rx Confirmed 05/16/24] oxycodone 10 mg tablet 10 mg PO Q6H PRN pain #28 tabs 01/11/24 [Rx Confirmed 05/16/24] pregabalin 75 mg capsule 75 mg PO BID #60 caps 01/21/24 [Rx Confirmed 05/16/24] Exam Exam Patient is in no acute distress and is cooperative with the examination today. Patient has a normal mood and affect. Breathing is nonlabored. In no respiratory distress. Bilateral extremities were evaluated and demonstrates sensation intact to light touch. Palpable pedal pulses are present. No significant edema is present. Right knee incision is clean dry intact. Range of motion 0 120 degrees Assessment and Plan Problem List (1) Arthritis of right knee: Status: Acute Plan: Vani is a pleasant 84-year-old female with right knee pain and right knee arthritis Status post right total knee replacement. The patient is doing better and has been more well-controlled pain. We will see the patient back in approximately 6 weeks for routine follow-up. She is doing well and better Advanced Care Planning Discussion Advance care planning discussed with:: patient Office Procedures GNS Level of Care Nursing/Assessment Patient Status: Established Patient Nursing Assessment/Reassesment: Medication Reconciliation, Update PMH in EMR and Vital Signs Coordination of Care: Complex Care and Chronic Disease 1-5, Education Complex Pt/Fam, Consent,records obtained, informed consent, Results/Orders obtained and Staff clarify orders Established Patient Charge Established Patient Point Assignment: 95 Established Patient Point Charge: EP Level 3 (80-115) MA Intake Visit Data Collection New Patient or Established: Established Patient (seen at [facility] within 3 years) Reason for Visit:: FOLLOW UP Seen by Clinical Staff ONLY (RN/MA): No Verbal consent obtained for Telemed visit?: No Control Electrician Required: No PCP or OBGYN visit in last 3 months: Yes Hx Now: No Do You Feel Safe at Home: Yes Authorities Contacted: N/A Questionairres Past Medical History Past Medical History Have you ever been diagnosed with any of the following: Neurological Problems Seizures: No Cardiology Problems Cardiac Arrhythmia: No Atrial Fibrillation: No Angina: No Coronary Artery Disease: Yes Atherosclerotic Heart Disease: No Hypercholesterolemia: Yes Aneurysm: No Congestive Heart Failure: No Congenital Heart Disease: No Cardiomyopathy: No Hypertension: Yes Varicose Veins: Yes Respiratory Problems Chronic Obstructive Pulmonary Disease (COPD): No Asthma: No Smoking: No Smoking Cessation Counseling: No Smoking Exposure: No Tobacco Use: No Clubbing: No Stomache/Intestinal Problems Hepatitis: No Diverticulosis: Yes Genital/Urinary Problems Renal Disease: Yes Reproductive Problems Pelvic Inflammatory Disease: No Previous Pregnancies: Yes Musculoskeletal Problems Arthritis: Yes Fractures: Yes (wrist as a child) Head,Eye,Nose,Throat Problems Cataracts: Yes Endocrine Problems Diabetes Mellitus Type 1: No Diabetes Mellitus Type 2: No Blood Problems Sickle Cell Disease: No Clotting Problems: No Other Problems Hospitalization: Yes (surgery) Down Syndrome: No Developmental Delay: No Shingles: No Blood Transfusions: Yes Blood Transfusion Reaction: No Anesthesia Reactions: No Organ Transplant: No Chemotherapy: No Radiation Therapy: No MRSA: No VRSA: No Vancomycin-Resistant Enterococci: No Chicken Pox: Yes Measles: Yes Mumps: Yes Clostridium Difficile: No Cancer: Yes Surgical History Coronary Artery Bypass Graft: Yes (Apr 2023) Hysterectomy: Yes Thyroidectomy: No Subjective Visit Visit for: follow up visit and knee Immunization / Flu Flu Vaccine in the Last 12 Months: Yes Flu Vaccine Exclusion Criteria: Already Received History of Present Illness Chief complaint: S/P RIGHT TKA Patient is a 83-year-old female status post total knee replacement. She is doing well. Her original course was quite rough as she had uncontrolled pain in the beginning. She is not doing better with her right knee pain. She is scheduled for a right hip replacement next Wednesday with Dr. Brock Reyes Pain Pain level (0-10): 5 Pain duration: COMES AND GOES Pain location: inside (medial), outside (lateral), anterior and posterior Pain quality: dull and aching Pain timing: increases with activity Ambulatory data Ambulatory device: walker Treatments Improvement with previous injections: No Improvement with PT: No Improvement with NSAIDS: no Review of Systems Review of Systems: All systems negative unless otherwise noted in HPI.
[2024-05-16 10:49] VITALS: BP 139/83; PULSE 66; RESP 18; TEMP 36.3; O2SAT 97; BMI 35.4
== END 2024-05-16 11:09 | disposition home or self-care (01) ==
LOC: HODSRG 10:20
PROVIDERS: PCP Family Medicine; Referring Provider Family Medicine; Supervising Provider Orthopaedic Surgery Adult Reconstructive Orthopaedic Surgery; Visit Provider Orthopaedic Surgery Adult Reconstructive Orthopaedic Surgery
DX: M17.11 Unilateral primary osteoarthritis, right knee (principal); I25.10 Atherosclerotic heart disease of native coronary artery without angina pectoris; I10 Essential (primary) hypertension; E78.00 Pure hypercholesterolemia, unspecified
CPT/HCPCS: 99213; G0463

== ENCOUNTER → 2024-05-16 | Outpatient (CLI) | payer MEDICARE, SELFPAY ==
[2024-05-16 16:18] LABS: Collection Type, Urine Clean Catch
[2024-05-16 18:16] LABS: Bacteria,Urine 1+; Bilirubin,Urine Negative (Negative); Blood,Urine Negative (Negative); Clarity,Urine Clear (Clear/Hazy); Color,Urine Yellow (Lt Yel-Yel); Glucose, Urine Negative (Negative); Ketones,Urine Negative (Negative); Leukocyte Esterase,Urine Positive (Negative); Nitrite,Urine Negative (Negative); PH,Urine 5.5 (5.0-7.0); Protein,Urine 1+ (Neg - Trace); RBC,Urine 4 /hpf (0-3); Specific Gravity,Urine 1.027 (1.001-1.035); Squamous Epithelial Cell,Urine < 1 /hpf (0-5); Urobilinogen,Urine Negative mg/dL (0.0-1.0); WBC,Urine 23 /hpf (0-5)
== END | disposition home or self-care (01) ==
PROVIDERS: PCP Family Medicine; Referring Provider Family Medicine; Visit Provider Family Medicine
DX: N30.00 Acute cystitis without hematuria (principal)
CPT/HCPCS: 81001; 87077; 87086; 87186

== ENCOUNTER → 2024-05-31 | Outpatient (CLI) | payer MEDICARE, SELFPAY ==
[2024-05-31 15:53] LABS: Collection Type, Urine Clean Catch
[2024-05-31 16:51] LABS: Bilirubin,Urine Negative (Negative); Blood,Urine Negative (Negative); Clarity,Urine Clear (Clear/Hazy); Color,Urine Lt-Yellow (Lt Yel-Yel); Glucose, Urine Negative (Negative); Ketones,Urine Negative (Negative); Leukocyte Esterase,Urine Negative (Negative); Nitrite,Urine Negative (Negative); Protein,Urine Trace (Neg - Trace); RBC,Urine 1 /hpf (0-3); Specific Gravity,Urine 1.021 (1.001-1.035); Squamous Epithelial Cell,Urine < 1 /hpf (0-5); Urobilinogen,Urine Negative mg/dL (0.0-1.0); WBC,Urine < 1 /hpf (0-5)
== END | disposition home or self-care (01) ==
LOC: SLDO 15:34
PROVIDERS: PCP Family Medicine; Referring Provider Family Medicine; Visit Provider Family Medicine
DX: N30.00 Acute cystitis without hematuria (principal)
CPT/HCPCS: 81001; 87086

== ENCOUNTER → 2024-07-13 | Outpatient (CLI) | payer MEDICARE, SELFPAY ==
[2024-07-13 16:18] LABS: Collection Type, Urine Clean Catch
[2024-07-13 16:53] LABS: Basophils % (Auto) 1 % (0-2.5); Eosinophils # (Auto) 0.1 Thou/mm3 (0.0-0.5); Eosinophils % (Auto) 2 % (0-10); Hematocrit 29.8 % (36.0-46.0); Hemoglobin 9.5 g/dL (12.0-16.0); Immature Granulocytes % (Auto) 0 % (0-0); Immature Granulocytes Auto 0.02 Thou/mm3 (0.00-0.00); Lymphocytes # (Auto) 1.4 Thou/mm3 (1.0-4.8); Lymphocytes % (Auto) 22 % (10-50); Mean Corpuscular HGB Conc 31.9 g/dl (31.0-37.0); Mean Corpuscular Hemoglobin 30.4 pg (25.0-35.0); Mean Corpuscular Volume 96 fL (80-100); Monocytes # (Auto) 0.4 Thou/mm3 (0.0-0.8); Monocytes % (Auto) 7 % (0-12); Neutrophils # (Auto) 4.3 Thou/mm3 (1.8-7.7); Neutrophils % (Auto) 69 % (37-80); Nucleated Red Blood Cell % 0 /100 WBC (0); Platelet Count 298 Thou/mm3 (140-440); RDW Standard Deviation 49.5 fL (36.4-46.3); Red Blood Count 3.12 Miln/mm3 (4.00-5.20); White Blood Count 6.2 Thou/mm3 (3.6-11.0)
[2024-07-13 17:00] LABS: Parathyroid Hormone Intact 72.4 pg/ml (18.5-88.0)
[2024-07-13 17:02] LABS: Albumin, Serum 4.1 gm/dL (3.4-4.8); Anion Gap 8 (7-16); BUN/Creatinine Ratio 21 Ratio (12-20); Blood Urea Nitrogen 25 mg/dL (9-23); Calcium 9.3 mg/dL (8.3-10.6); Calcium (Corrected) 9.3 mg/dL (8.5-10.1); Carbon Dioxide 27.8 mMol/L (20.0-31.0); Chloride 105 mMol/L (98-107); Creatinine (Component) 1.2 mg/dL (0.6-1.3); Glucose 152 mg/dL (74-106); Osmolality,Calculated 288 (275-295); Phosphorous 3.4 mg/dL (2.4-5.1); Potassium 4.7 mMol/L (3.4-5.1); Sodium 141 mMol/L (136-145); eGFR 45 See Note
[2024-07-13 17:09] LABS: Creatinine MALB Rnd Ur 32 mg/dL (30-125); Microalbumin Creat Ratio 241 mg/gCrea (<30); Microalbumin, Random Urine 77 mg/L (0-300)
[2024-07-13 17:26] LABS: Bacteria,Urine Rare; Bilirubin,Urine Negative (Negative); Blood,Urine Trace (Negative); Clarity,Urine Clear (Clear/Hazy); Color,Urine Colorless (Lt Yel-Yel); Glucose, Urine Negative (Negative); Ketones,Urine Negative (Negative); Leukocyte Esterase,Urine Negative (Negative); Nitrite,Urine Negative (Negative); Protein,Urine Negative (Neg - Trace); RBC,Urine 5 /hpf (0-3); Squamous Epithelial Cell,Urine 1 /hpf (0-5); Urobilinogen,Urine Negative mg/dL (0.0-1.0); WBC,Urine 4 /hpf (0-5)
== END | disposition home or self-care (01) ==
LOC: COPL 15:04
PROVIDERS: PCP Family Medicine; Referring Provider Internal Medicine; Visit Provider Internal Medicine
DX: I12.9 Hypertensive chronic kidney disease with stage 1 through stage 4 chronic kidney disease, or unspecified chronic kidney disease (principal); N18.30 Chronic kidney disease, stage 3 unspecified
CPT/HCPCS: 36415; 80069; 81001; 82043; 82570; 83970; 85025

== ENCOUNTER → 2024-08-23 | Outpatient (CLI) | payer MEDICARE, SELFPAY ==
[2024-08-23 09:16] LABS: Albumin, Serum 4.1 gm/dL (3.4-4.8); Anion Gap 8 (7-16); BUN/Creatinine Ratio 24 Ratio (12-20); Blood Urea Nitrogen 31 mg/dL (9-23); Calcium 9.5 mg/dL (8.3-10.6); Calcium (Corrected) 9.5 mg/dL (8.5-10.1); Carbon Dioxide 28.3 mMol/L (20.0-31.0); Chloride 105 mMol/L (98-107); Creatinine (Component) 1.3 mg/dL (0.6-1.3); Glucose 104 mg/dL (74-106); Osmolality,Calculated 287 (275-295); Phosphorous 3.8 mg/dL (2.4-5.1); Potassium 4.6 mMol/L (3.4-5.1); Sodium 141 mMol/L (136-145); eGFR 41 See Note
== END | disposition home or self-care (01) ==
PROVIDERS: PCP Family Medicine; Referring Provider Internal Medicine; Visit Provider Internal Medicine
DX: N18.30 Chronic kidney disease, stage 3 unspecified (principal)
CPT/HCPCS: 36415; 80069

== ENCOUNTER → 2024-08-31 | Outpatient (CLI) | payer MEDICARE, SELFPAY ==
--- NOTE | 2024-08-31 10:00 | XR_ITS ---
Examination: CT chest with intravenous contrast 2-D sagittal and coronal reconstructions Exam date and time: August 31, 2024 1041 hours INDICATIONS: Endometrial carcinoma diagnosis July 2023 CTDI:vol (mGy) 13 DLP: (mGycm) 455 Technique: Multiple axial sections of the thorax have been obtained. Sections have been obtained, 3 mm slice thickness. Mediastinal and lung density settings have been obtained. Intravenous contrast administered, 60 cc Isovue-370. 2-D sagittal, coronal images obtained. Low dose protocols were performed. One or more of the following dose reduction techniques were used; automated exposure control, adjustment of the mA and/or KV according to patient size, use of iterative reconstruction technique. 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
== END | disposition home or self-care (01) ==
PROVIDERS: Referring Provider Nurse Practitioner Family; Visit Provider Nurse Practitioner Family
DX: R91.8 Other nonspecific abnormal finding of lung field (principal)
CPT/HCPCS: 71260; A4649; Q9967

== ENCOUNTER → 2024-09-11 | Outpatient (CLI) | payer MEDICARE, SELFPAY ==
--- NOTE | 2024-09-11 | XR_ITS ---
Examination:Right hip AP, lateral, AP pelvis 3 views Technique: Hip AP lateral, AP pelvis, 3 views Exam date and time:September 11, 2024 1125 hours INDICATIONS: Status post right hip replacement May 2024. Findings: Total right hip arthroplasty. 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
== END | disposition home or self-care (01) ==
PROVIDERS: PCP Family Medicine; Referring Provider Orthopaedic Surgery; Visit Provider Orthopaedic Surgery
DX: M25.551 Pain in right hip (principal); Z96.641 Presence of right artificial hip joint
CPT/HCPCS: 73502

== ENCOUNTER 2024-10-03 09:06 | Outpatient (AMB) | payer MEDICARE, SELFPAY ==
[2024-10-03 09:18] VITALS: BP 144/81; PULSE 62; RESP 18; TEMP 36.3; O2SAT 96; BMI 36.0
--- NOTE | 2024-10-03 09:18 | ORTHONT_ITS ---
Vital signs 10/03/24 09:18 Height 1.7 m Height Method Measured Weight 104.128 kg Weight Measurement Method Standing Scale BMI 36.0 BP 144/81 H Blood Pressure Source Automatic Cuff Blood Pressure Location Left Upper Arm Position Sitting Respiration 18 Pulse 62 Pulse Source Monitor Temp 97.3 F Temp Source Temporal Artery Scan Pulse Oximetry (%) 96 Oxygen Delivery Method Room Air Med/Allergies Allergies & Medications Allergies [id number] Reductase Inhibitor Allergy (Intermediate, Verified 10/03/24 09:19) Muscle Pain Sulfa (Sulfonamide Antibiotics) Allergy (Intermediate, Verified 10/03/24 09:19) ITCHING meperidine Allergy (Unknown, Verified 10/03/24 09:19) Rash Medication Reconciliation cholecalciferol (vitamin D3) 10 mcg (400 unit) capsule (Vitamin D3) 10 mcg PO QDAY 05/01/20 [History Confirmed 10/03/24] carvedilol 3.125 mg tablet 3.125 mg PO BID 09/24/23 [History Confirmed 10/03/24] magnesium oxide 400 mg PO QDAY 12/27/23 [History Confirmed 10/03/24] vitamin D3 1,250 mcg (50,000 unit)-vitamin K2 200 mcg capsule 1 cap PO BID 12/27/23 [History Confirmed 10/03/24] zinc 50 mg tablet 50 mg PO QDAY 12/27/23 [History Confirmed 10/03/24] acetaminophen 500 mg tablet (Acetaminophen Extra Strength) 1,000 mg (2 x 500 mg) PO Q6H PRN pain #90 tabs 12/29/23 [Rx Confirmed 10/03/24] aspirin 81 mg tablet,delayed release 81 mg PO BID #60 tabs 12/29/23 [Rx Confirmed 10/03/24] doxycycline hyclate 100 mg tablet 100 mg PO BID #14 tabs 12/29/23 [Rx Confirmed 10/03/24] gabapentin 300 mg capsule 300 mg PO .qhs #30 caps 12/29/23 [Rx Confirmed 10/03/24] sennosides 8.6 mg-docusate sodium 50 mg tablet (Senna-S) 1 tab-cap PO QDAY #30 tabs 12/29/23 [Rx Confirmed 10/03/24] cyclobenzaprine 5 mg tablet 5 mg PO TID PRN muscle spasm #30 tabs 12/31/23 [Rx Confirmed 10/03/24] oxycodone 10 mg tablet 10 mg PO Q6H PRN pain #28 tabs 01/11/24 [Rx Confirmed 10/03/24] pregabalin 75 mg capsule 75 mg PO BID #60 caps 01/21/24 [Rx Confirmed 10/03/24] Exam Exam Patient is in no acute distress and is cooperative with the examination today. Patient has a normal mood and affect. Breathing is nonlabored. In no respiratory distress. Bilateral extremities were evaluated and demonstrates sensation intact to light touch. Palpable pedal pulses are present. No significant edema is present. Right knee incision is clean dry intact. Range of motion 0 120 degrees Assessment and Plan Problem List (1) Arthritis of right knee: Status: Acute Plan: Vani is a pleasant 84-year-old female with right knee pain and right knee arthritis Status post right total knee replacement. The patient is doing better and has been more well-controlled pain. We will see the patient back in approximately 3 months for routine follow-up. She is doing well and better. We will see her back in 3 months with xrays Advanced Care Planning Discussion Advance care planning discussed with:: patient Office Procedures GNS Level of Care Nursing/Assessment Patient Status: Established Patient Nursing Assessment/Reassesment: Medication Reconciliation, Update PMH in EMR and Vital Signs Coordination of Care: Complex Care and Chronic Disease 1-5, Education Complex Pt/Fam, Consent,records obtained, informed consent, Lab and Imaging orders, Results/Orders obtained and Staff clarify orders Established Patient Charge Established Patient Point Assignment: 110 Established Patient Point Charge: EP Level 3 (80-115) MA Intake Visit Data Collection New Patient or Established: Established Patient (seen at [facility] within 3 years) Reason for Visit:: RIGHT KNEE PAIN F/U Seen by Clinical Staff ONLY (RN/MA): No Catapult And Arresting Gear Officer Required: No PCP or OBGYN visit in last 3 months: Yes Hx Now: No Do You Feel Safe at Home: Yes Authorities Contacted: N/A Questionairres Past Medical History Past Medical History Have you ever been diagnosed with any of the following: Neurological Problems Seizures: No Cardiology Problems Cardiac Arrhythmia: No Atrial Fibrillation: No Angina: No Coronary Artery Disease: Yes Atherosclerotic Heart Disease: No Hypercholesterolemia: Yes Aneurysm: No Congestive Heart Failure: No Congenital Heart Disease: No Cardiomyopathy: No Hypertension: Yes Varicose Veins: Yes Respiratory Problems Chronic Obstructive Pulmonary Disease (COPD): No Asthma: No Smoking: No Smoking Cessation Counseling: No Smoking Exposure: No Tobacco Use: No Clubbing: No Stomache/Intestinal Problems Hepatitis: No Diverticulosis: Yes Genital/Urinary Problems Renal Disease: Yes Reproductive Problems Pelvic Inflammatory Disease: No Previous Pregnancies: Yes Musculoskeletal Problems Arthritis: Yes Fractures: Yes (wrist as a child) Head,Eye,Nose,Throat Problems Cataracts: Yes Endocrine Problems Diabetes Mellitus Type 1: No Diabetes Mellitus Type 2: No Blood Problems Sickle Cell Disease: No Clotting Problems: No Other Problems Hospitalization: Yes (surgery) Down Syndrome: No Developmental Delay: No Shingles: No Blood Transfusions: Yes Blood Transfusion Reaction: No Anesthesia Reactions: No Organ Transplant: No Chemotherapy: No Radiation Therapy: No MRSA: No VRSA: No Vancomycin-Resistant Enterococci: No Chicken Pox: Yes Measles: Yes Mumps: Yes Clostridium Difficile: No Cancer: Yes Surgical History Coronary Artery Bypass Graft: Yes (Apr 2023) Hysterectomy: Yes Thyroidectomy: No Subjective Visit Visit for: follow up visit and knee Immunization / Flu Flu Vaccine in the Last 12 Months: No Flu Vaccine Exclusion Criteria: Refused by Patient History of Present Illness Chief complaint: RIGHT KNEE PAIN F/U Patient is a 83-year-old female status post total knee replacement. She is doing well. Her original course was quite rough as she had uncontrolled pain in the beginning. She is now doing better with her right knee pain. Personal History BMI Counceling provided: Yes Pain Pain level (0-10): 2 Pain duration: COMES AND GOES Pain location: outside (lateral) Pain quality: dull Pain timing: increases with activity Associated signs & symptoms: numbness Ambulatory data Ambulatory device: walker Treatments Improvement with previous injections: No Improvement with PT: No Improvement with NSAIDS: no Review of Systems Review of Systems: All systems negative unless otherwise noted in HPI.
--- NOTE | 2024-10-03 09:31 | XR_ITS ---
Examination: Bilateral AP knees single view Right knee PA lateral axial 3 views TECHNIQUE: Bilateral AP knees standing single view Right knee PA standing flexion, standing lateral, axial right knee 3 views total 4 views Date and time: October 03, 2024 0952 hours INDICATIONS: Right knee replacement November 2024. FINDINGS: Significant osteopenia Bilateral total knee arthroplasties. Satisfactory alignment. No loosening of the prosthetic components. Small right knee effusion IMPRESSION: Bilateral total knee arthroplasties with satisfactory alignment
== END 2024-10-03 09:40 | disposition home or self-care (01) ==
LOC: HODSRG 09:06
PROVIDERS: PCP Family Medicine; Referring Provider Family Medicine; Supervising Provider Orthopaedic Surgery Adult Reconstructive Orthopaedic Surgery; Visit Provider Orthopaedic Surgery Adult Reconstructive Orthopaedic Surgery
DX: M17.11 Unilateral primary osteoarthritis, right knee (principal); M25.561 Pain in right knee; Z96.651 Presence of right artificial knee joint; I10 Essential (primary) hypertension; E78.00 Pure hypercholesterolemia, unspecified; I25.10 Atherosclerotic heart disease of native coronary artery without angina pectoris; Z95.1 Presence of aortocoronary bypass graft
CPT/HCPCS: 73564; 99213; G0463

== ENCOUNTER → 2024-10-10 | Outpatient (CLI) | payer MEDICARE, SELFPAY ==
[2024-10-10 11:06] LABS: Quantiferon-TB* See Sep Rpt
[2024-10-10 12:35] LABS: Cocci Serology, IgM Negative (Negative)
[2024-10-11 12:36] LABS: Cocci Serology, IgG Negative (Negative)
== END | disposition home or self-care (01) ==
LOC: COPL 10-12 07:29
PROVIDERS: PCP Family Medicine; Referring Provider Family Medicine; Visit Provider Internal Medicine
DX: R91.8 Other nonspecific abnormal finding of lung field (principal); Z85.42 Personal history of malignant neoplasm of other parts of uterus
CPT/HCPCS: 36415; 86331; 86480; 86635

== ENCOUNTER → 2024-11-20 | Outpatient (CLI) | payer MEDICARE, SELFPAY ==
[2024-11-20 08:45] LABS: Collection Type, Urine Clean Catch
[2024-11-20 09:25] LABS: Basophils # (Auto) 0.0 Thou/mm3 (0.0-0.2); Basophils % (Auto) 1 % (0-2.5); Eosinophils # (Auto) 0.1 Thou/mm3 (0.0-0.5); Eosinophils % (Auto) 2 % (0-10); Hematocrit 37.5 % (36.0-46.0); Hemoglobin 12.4 g/dL (12.0-16.0); Immature Granulocytes Auto 0.02 Thou/mm3 (0.00-0.00); Lymphocytes # (Auto) 1.5 Thou/mm3 (1.0-4.8); Lymphocytes % (Auto) 24 % (10-50); Mean Corpuscular HGB Conc 33.1 g/dl (31.0-37.0); Mean Corpuscular Hemoglobin 30.0 pg (25.0-35.0); Mean Corpuscular Volume 91 fL (80-100); Monocytes # (Auto) 0.5 Thou/mm3 (0.0-0.8); Monocytes % (Auto) 8 % (0-12); Neutrophils # (Auto) 4.1 Thou/mm3 (1.8-7.7); Neutrophils % (Auto) 65 % (37-80); Nucleated Red Blood Cell # 0.00 Thou/mm3 (0.00-0.00); Nucleated Red Blood Cell % 0 /100 WBC (0); Platelet Count 207 Thou/mm3 (140-440); RDW Standard Deviation 48.5 fL (36.4-46.3); Red Blood Count 4.14 Miln/mm3 (4.00-5.20); White Blood Count 6.2 Thou/mm3 (3.6-11.0)
[2024-11-20 09:26] LABS: Bilirubin,Urine Negative (Negative); Blood,Urine Negative (Negative); Clarity,Urine Clear (Clear/Hazy); Color,Urine Lt-Yellow (Lt Yel-Yel); Glucose, Urine Negative (Negative); Ketones,Urine Negative (Negative); Leukocyte Esterase,Urine Negative (Negative); Nitrite,Urine Negative (Negative); PH,Urine 6.0 (5.0-7.0); Protein,Urine Trace (Neg - Trace); RBC,Urine 3 /hpf (0-3); Specific Gravity,Urine 1.017 (1.001-1.035); Squamous Epithelial Cell,Urine 1 /hpf (0-5); Urobilinogen,Urine Negative mg/dL (0.0-1.0); WBC,Urine 1 /hpf (0-5)
[2024-11-20 09:37] LABS: Albumin, Serum 4.4 gm/dL (3.4-4.8); Anion Gap 8 (7-16); BUN/Creatinine Ratio 25 Ratio (12-20); Blood Urea Nitrogen 30 mg/dL (9-23); Calcium 10.4 mg/dL (8.3-10.6); Calcium (Corrected) 10.4 mg/dL (8.5-10.1); Carbon Dioxide 27.2 mMol/L (20.0-31.0); Chloride 106 mMol/L (98-107); Creatinine (Component) 1.2 mg/dL (0.6-1.3); Glucose 98 mg/dL (74-106); Osmolality,Calculated 287 (275-295); Phosphorous 3.4 mg/dL (2.4-5.1); Potassium 4.4 mMol/L (3.4-5.1); Sodium 141 mMol/L (136-145); eGFR 45 See Note
[2024-11-20 09:45] LABS: Creatinine MALB Rnd Ur 74 mg/dL (30-125); Microalbumin Creat Ratio 95 mg/gCrea (<30); Microalbumin, Random Urine 70 mg/L (0-300)
[2024-11-20 10:00] LABS: Glucose Estimated Average 114 mg/dL (80-131); Hemoglobin A1C 5.6 % Hgb (4.8-6.0)
== END | disposition home or self-care (01) ==
LOC: COPL 08:02
PROVIDERS: PCP Family Medicine; Referring Provider Internal Medicine; Visit Provider Internal Medicine
DX: I12.9 Hypertensive chronic kidney disease with stage 1 through stage 4 chronic kidney disease, or unspecified chronic kidney disease (principal); N18.30 Chronic kidney disease, stage 3 unspecified
CPT/HCPCS: 36415; 80069; 81001; 82043; 82570; 83036; 85025

== ENCOUNTER 2025-01-02 10:09 | Outpatient (AMB) | payer MEDICARE, SELFPAY ==
[2025-01-02 10:48] VITALS: BP 148/83; PULSE 61; RESP 19; TEMP 36.5; O2SAT 94; BMI 36.1
--- NOTE | 2025-01-02 10:48 | ORTHONT_ITS ---
Vital signs 01/02/25 10:48 01/02/25 10:52 Height 1.7 m Height Method Measured Weight 104.468 kg Weight Measurement Method Standing Scale BMI 36.1 BP 148/83 H 148/83 H Blood Pressure Source Automatic Cuff Blood Pressure Location Left Upper Arm Position Sitting Respiration 19 19 Pulse 61 61 Pulse Source Monitor Temp 97.7 F 97.7 F Temp Source Temporal Artery Scan Pulse Oximetry (%) 94 L 94 L Oxygen Delivery Method Room Air Med/Allergies Allergies & Medications Allergies [id number] Reductase Inhibitor Allergy (Intermediate, Verified 01/02/25 10:49) Muscle Pain Sulfa (Sulfonamide Antibiotics) Allergy (Intermediate, Verified 01/02/25 10:49) ITCHING meperidine Allergy (Unknown, Verified 01/02/25 10:49) Rash Medication Reconciliation cholecalciferol (vitamin D3) 10 mcg (400 unit) capsule (Vitamin D3) 10 mcg PO QDAY 05/01/20 [History Confirmed 01/02/25] carvedilol 3.125 mg tablet 3.125 mg PO BID 09/24/23 [History Confirmed 01/02/25] magnesium oxide 400 mg PO QDAY 12/27/23 [History Confirmed 01/02/25] vitamin D3 1,250 mcg (50,000 unit)-vitamin K2 200 mcg capsule 1 cap PO BID 12/27/23 [History Confirmed 01/02/25] zinc 50 mg tablet 50 mg PO QDAY 12/27/23 [History Confirmed 01/02/25] acetaminophen 500 mg tablet (Acetaminophen Extra Strength) 1,000 mg (2 x 500 mg) PO Q6H PRN pain #90 tabs 12/29/23 [Rx Confirmed 01/02/25] aspirin 81 mg tablet,delayed release 81 mg PO BID #60 tabs 12/29/23 [Rx Confirmed 01/02/25] doxycycline hyclate 100 mg tablet 100 mg PO BID #14 tabs 12/29/23 [Rx Confirmed 01/02/25] gabapentin 300 mg capsule 300 mg PO .qhs #30 caps 12/29/23 [Rx Confirmed 01/02/25] sennosides 8.6 mg-docusate sodium 50 mg tablet (Senna-S) 1 tab-cap PO QDAY #30 tabs 12/29/23 [Rx Confirmed 01/02/25] cyclobenzaprine 5 mg tablet 5 mg PO TID PRN muscle spasm #30 tabs 12/31/23 [Rx Confirmed 01/02/25] oxycodone 10 mg tablet 10 mg PO Q6H PRN pain #28 tabs 01/11/24 [Rx Confirmed 01/02/25] pregabalin 75 mg capsule 75 mg PO BID #60 caps 01/21/24 [Rx Confirmed 01/02/25] Office Procedures GNS Level of Care Nursing/Assessment Patient Status: Established Patient Nursing Assessment/Reassesment: Medication Reconciliation, Update PMH in EMR and Vital Signs Coordination of Care: Complex Care and Chronic Disease 1-5, Education Complex Pt/Fam, Consent,records obtained, informed consent, Results/Orders obtained and Staff clarify orders Established Patient Charge Established Patient Point Assignment: 95 Established Patient Point Charge: EP Level 3 (80-115) MA Intake Visit Data Collection New Patient or Established: Established Patient (seen at [facility] within 3 years) Reason for Visit:: XRAY RESULTS Seen by Clinical Staff ONLY (RN/MA): No Clinical Education Specialist Required: No PCP or OBGYN visit in last 3 months: Yes Hx Now: No Do You Feel Safe at Home: Yes Authorities Contacted: N/A Questionairres Past Medical History Past Medical History Have you ever been diagnosed with any of the following: Neurological Problems Seizures: No Cardiology Problems Cardiac Arrhythmia: No Atrial Fibrillation: No Angina: No Coronary Artery Disease: Yes Atherosclerotic Heart Disease: No Hypercholesterolemia: Yes Aneurysm: No Congestive Heart Failure: No Congenital Heart Disease: No Cardiomyopathy: No Hypertension: Yes Varicose Veins: Yes Respiratory Problems Chronic Obstructive Pulmonary Disease (COPD): No Asthma: No Smoking: No Smoking Cessation Counseling: No Smoking Exposure: No Tobacco Use: No Clubbing: No Stomache/Intestinal Problems Hepatitis: No Diverticulosis: Yes Genital/Urinary Problems Renal Disease: Yes Reproductive Problems Pelvic Inflammatory Disease: No Previous Pregnancies: Yes Musculoskeletal Problems Arthritis: Yes Fractures: Yes (wrist as a child) Head,Eye,Nose,Throat Problems Cataracts: Yes Endocrine Problems Diabetes Mellitus Type 1: No Diabetes Mellitus Type 2: No Blood Problems Sickle Cell Disease: No Clotting Problems: No Other Problems Hospitalization: Yes (surgery) Down Syndrome: No Developmental Delay: No Shingles: No Blood Transfusions: Yes Blood Transfusion Reaction: No Anesthesia Reactions: No Organ Transplant: No Chemotherapy: No Radiation Therapy: No MRSA: No VRSA: No Vancomycin-Resistant Enterococci: No Chicken Pox: Yes Measles: Yes Mumps: Yes Clostridium Difficile: No Cancer: Yes Surgical History Coronary Artery Bypass Graft: Yes (Apr 2023) Hysterectomy: Yes Thyroidectomy: No Subjective Visit Visit for: follow up visit and knee Immunization / Flu Flu Vaccine in the Last 12 Months: No Flu Vaccine Exclusion Criteria: Refused by Patient History of Present Illness Chief complaint: XRAY RESULTS Personal History BMI Counceling provided: Yes Pain Pain level (0-10): 2 Pain duration: COMES AND GOES Pain location: outside (lateral) Pain quality: dull Pain timing: increases with activity Associated signs & symptoms: numbness Ambulatory data Ambulatory device: walker Treatments Improvement with previous injections: No Improvement with PT: No Improvement with NSAIDS: no Review of Systems Review of Systems: All systems negative unless otherwise noted in HPI.
--- NOTE | 2025-01-02 10:50 | PD.ORTHCLVIS ---
Vital signs 01/02/25 10:48 Height 1.7 m Height Method Measured Weight 104.468 kg Weight Measurement Method Standing Scale BMI 36.1 BP 148/83 H Blood Pressure Source Automatic Cuff Blood Pressure Location Left Upper Arm Position Sitting Respiration 19 Pulse 61 Pulse Source Monitor Temp 97.7 F Temp Source Temporal Artery Scan Pulse Oximetry (%) 94 L Oxygen Delivery Method Room Air Med/Allergies Allergies & Medications Allergies [id number] Reductase Inhibitor Allergy (Intermediate, Verified 01/02/25 10:49) Muscle Pain Sulfa (Sulfonamide Antibiotics) Allergy (Intermediate, Verified 01/02/25 10:49) ITCHING meperidine Allergy (Unknown, Verified 01/02/25 10:49) Rash Medication Reconciliation cholecalciferol (vitamin D3) 10 mcg (400 unit) capsule (Vitamin D3) 10 mcg PO QDAY 05/01/20 [History Confirmed 01/02/25] carvedilol 3.125 mg tablet 3.125 mg PO BID 09/24/23 [History Confirmed 01/02/25] magnesium oxide 400 mg PO QDAY 12/27/23 [History Confirmed 01/02/25] vitamin D3 1,250 mcg (50,000 unit)-vitamin K2 200 mcg capsule 1 cap PO BID 12/27/23 [History Confirmed 01/02/25] zinc 50 mg tablet 50 mg PO QDAY 12/27/23 [History Confirmed 01/02/25] acetaminophen 500 mg tablet (Acetaminophen Extra Strength) 1,000 mg (2 x 500 mg) PO Q6H PRN pain #90 tabs 12/29/23 [Rx Confirmed 01/02/25] aspirin 81 mg tablet,delayed release 81 mg PO BID #60 tabs 12/29/23 [Rx Confirmed 01/02/25] doxycycline hyclate 100 mg tablet 100 mg PO BID #14 tabs 12/29/23 [Rx Confirmed 01/02/25] gabapentin 300 mg capsule 300 mg PO .qhs #30 caps 12/29/23 [Rx Confirmed 01/02/25] sennosides 8.6 mg-docusate sodium 50 mg tablet (Senna-S) 1 tab-cap PO QDAY #30 tabs 12/29/23 [Rx Confirmed 01/02/25] cyclobenzaprine 5 mg tablet 5 mg PO TID PRN muscle spasm #30 tabs 12/31/23 [Rx Confirmed 01/02/25] oxycodone 10 mg tablet 10 mg PO Q6H PRN pain #28 tabs 01/11/24 [Rx Confirmed 01/02/25] pregabalin 75 mg capsule 75 mg PO BID #60 caps 01/21/24 [Rx Confirmed 01/02/25] Exam Exam Patient is in no acute distress and is cooperative with the examination today. Patient has a normal mood and affect. Breathing is nonlabored. In no respiratory distress. Bilateral extremities were evaluated and demonstrates sensation intact to light touch. Palpable pedal pulses are present. No significant edema is present. Right knee incision is clean dry intact. Range of motion 0 120 degrees x-rays demonstrates a right total knee replacement in good alignment position. There is no evidence of loosening Assessment and Plan Problem List (1) Arthritis of right knee: Status: Acute Plan: Vani is a pleasant 84-year-old female with right knee pain and right knee arthritis Status post right total knee replacement. The patient is doing better and has been more well-controlled pain. 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 PCP or OBGYN visit in last 3 months: Yes Hx Now: No Do You Feel Safe at Home: Yes Authorities Contacted: N/A Questionairres Past Medical History Past Medical History Have you ever been diagnosed with any of the following: Neurological Problems Seizures: No Cardiology Problems Cardiac Arrhythmia: No Atrial Fibrillation: No Angina: No Coronary Artery Disease: Yes Atherosclerotic Heart Disease: No Hypercholesterolemia: Yes Aneurysm: No Congestive Heart Failure: No Congenital Heart Disease: No Cardiomyopathy: No Hypertension: Yes Varicose Veins: Yes Respiratory Problems Chronic Obstructive Pulmonary Disease (COPD): No Asthma: No Smoking: No Smoking Cessation Counseling: No Smoking Exposure: No Tobacco Use: No Clubbing: No Stomache/Intestinal Problems Hepatitis: No Diverticulosis: Yes Genital/Urinary Problems Renal Disease: Yes Reproductive Problems Pelvic Inflammatory Disease: No Previous Pregnancies: Yes Musculoskeletal Problems Arthritis: Yes Fractures: Yes (wrist as a child) Head,Eye,Nose,Throat Problems Cataracts: Yes Endocrine Problems Diabetes Mellitus Type 1: No Diabetes Mellitus Type 2: No Blood Problems Sickle Cell Disease: No Clotting Problems: No Other Problems Hospitalization: Yes (surgery) Down Syndrome: No Developmental Delay: No Shingles: No Blood Transfusions: Yes Blood Transfusion Reaction: No Anesthesia Reactions: No Organ Transplant: No Chemotherapy: No Radiation Therapy: No MRSA: No VRSA: No Vancomycin-Resistant Enterococci: No Chicken Pox: Yes Measles: Yes Mumps: Yes Clostridium Difficile: No Cancer: Yes Surgical History Coronary Artery Bypass Graft: Yes (Apr 2023) Hysterectomy: Yes Thyroidectomy: No Subjective Visit Visit for: follow up visit and knee Immunization / Flu Flu Vaccine in the Last 12 Months: No Flu Vaccine Exclusion Criteria: Refused by Patient History of Present Illness Chief complaint: XRAY RESULTS Patient is a 83-year-old female status post right total knee replacement. She is doing well. Her original course was quite rough as she had uncontrolled pain in the beginning. She is now doing better with her right knee pain. Personal History BMI Counceling provided: Yes Pain Pain level (0-10): 2 Pain duration: COMES AND GOES Pain location: outside (lateral) Pain quality: dull Pain timing: increases with activity Associated signs & symptoms: numbness Ambulatory data Ambulatory device: walker Treatments Improvement with previous injections: No Improvement with PT: No Improvement with NSAIDS: no Review of Systems Review of Systems: All systems negative unless otherwise noted in HPI.
[2025-01-02 10:52] VITALS: BP 148/83; PULSE 61; RESP 19; TEMP 36.5; O2SAT 94
== END 2025-01-02 10:58 | disposition home or self-care (01) ==
LOC: HODSRG 10:09
PROVIDERS: PCP Family Medicine; Referring Provider Family Medicine; Supervising Provider Orthopaedic Surgery Adult Reconstructive Orthopaedic Surgery; Visit Provider Orthopaedic Surgery Adult Reconstructive Orthopaedic Surgery
DX: M17.11 Unilateral primary osteoarthritis, right knee (principal)
CPT/HCPCS: 99213; G0463

== ENCOUNTER → 2025-01-30 | Outpatient (CLI) | payer MEDICARE, SELFPAY ==
--- NOTE | 2025-01-30 10:00 | XR_ITS ---
Examination: CT chest, without intravenous contrast. Sagittal and coronal 2-D reconstructions. Date and time: January 30, 2025, 1028 hours, comparison August 31, 2024 INDICATIONS: Diagnosis endometrial carcinoma, lung nodules on CT chest August 31, 2024 CTDI:vol (mGy) 12.9 DLP: (mGycm) 268 Technique: Multiple 3.0 mm axial sections of the chest to been obtained. Bone and lung density settings are obtained. Sagittal and coronal 2-D reconstructions have been obtained. Low dose protocols were performed. One or more of the following dose reduction techniques were used; automated exposure control, adjustment of the mA and/or KV according to patient size, use of iterative reconstruction technique. Findings: Small calcification right thyroid lobe Thoracic aortic calcification no aneurysmal dilatation Heavy calcification left anterior descending left circumflex right coronary arteries No mediastinal lymphadenopathy Stable bilateral pulmonary nodules No new pulmonary nodules No pneumonia or pulmonary edema The Louie structures are intact No gallstones Spleen demonstrates a 25 mm low-density lesion IMPRESSION: Stable pulmonary nodules as above, suggest continued 6-month follow-up CT chest without contrast Recommend ultrasound to assess splenic lesion
== END | disposition home or self-care (01) ==
LOC: CCTX 09:51
PROVIDERS: Referring Provider Internal Medicine; Visit Provider Internal Medicine
DX: R91.8 Other nonspecific abnormal finding of lung field (principal); Z85.42 Personal history of malignant neoplasm of other parts of uterus
CPT/HCPCS: 71250

== ENCOUNTER → 2025-02-28 | Outpatient (CLI) | payer MEDICARE, SELFPAY ==
--- NOTE | 2025-02-28 09:05 | XR_ITS ---
Examination: Abdomen sonogram, complete Date and time of exam: February 28, 2025, 0914 hours INDICATION: CT examination chest January 31, 2000 2525 mm low-density splenic lesion. Technique: Multiple real-time grayscale transabdominal sonographic images of the abdomen have been obtained. Findings: Normal gallbladder Normal common bile duct 0.3 cm Pancreatic head 2.9 cm Aorta not enlarged Liver 14.9 cm segment contour Normal hepatopetal portal venous flow Patent IVC Right kidney 9.5 cm cortex 1.5 cm Left kidney 9.0 cm cortex 1.5 cm Mild right hydronephrosis Spleen 10.2 cm x 25 mm x 29 mm cyst IMPRESSION: Normal gallbladder Normal common bile duct Mild right hydronephrosis Small benign splenic cyst
== END | disposition home or self-care (01) ==
PROVIDERS: PCP Family Medicine
DX: N13.30 Unspecified hydronephrosis (principal); D73.4 Cyst of spleen; C54.1 Malignant neoplasm of endometrium
CPT/HCPCS: 76700